=== PATIENT | male | born 1955 | race Caucasian/White ===

== ENCOUNTER 2022-11-01 09:54 | Outpatient (OUT) | payer MEDICARE, MEDICAID, SELFPAY ==
--- NOTE | 2022-11-01 10:00 | CA_ITS ---
Patient: MANASA NORIEGA Exam Date: 11/01/2022 : 1955 Gender:M Ordering : MRS. RICH SUMMERS NP Admission #: [id number] Family : Order #: [id number] CLICK HERE TO VIEW EXAM ECHOCARDIOGRAM REPORT PROCEDURE: CA ECHO DOPPLER COMPLETE INDICATIONS: Nonrheumatic mitral valve regurgitation, hypertension, h/o stroke COMPARISON: None. DESCRIPTION: COMPLETE ECHOCARDIOGRAM Real-time transthoracic echocardiography with 2D, M-mode, spectral and color flow Doppler performed. QUALITY: Technical quality was good. LEFT VENTRICLE: Normal chamber size. Mild concentric left ventricular hypertrophy. LV EF: Normal left ventricular ejection fraction, (>55%). DIASTOLIC: Diastolic function is indeterminate. ATRIAL SEPTUM: Inadequately seen. LEFT ATRIUM: Mild dilatation. RIGHT ATRIUM: Normal chamber size. RIGHT VENTRICLE: Normal chamber size. Normal right ventricular systolic function. TRICUSPID VALVE: Normal mobility and thickness. No stenosis with mild regurgitation. No evidence of pulmonary hypertension. RVSP 29 mmHg MITRAL VALVE: Mildly thickened with normal mobility. No evidence of mitral valve stenosis. Mild mitral annular calcification. No mitral regurgitation. AORTIC VALVE: Normal trileaflet appearance. Mildly calcified aortic valve. Normal leaflet mobility. No evidence of aortic valve stenosis. No aortic regurgitation. AORTIC ROOT: Normal diameter and appearance. PULMONIC VALVE: Not well visualized. No stenosis. No regurgitation. PERICARDIUM: No evidence of pericardial effusion. IVC: Not well visualized. CONCLUSION: Global left ventricular systolic function is normal; visually estimated ejection fraction is 55 to 60%. Mildly increased left ventricular wall thickness. The left atrium is dilated. The right ventricle is normal in size and systolic function. Mild tricuspid regurgitation. Adult Echocardiography Procedure Report Left Ventricle LVEDD (3.7 - 5.6 cm): 4.32 cm LVESD (2.2 - 4.0 cm): 3.02 cm LVIVS thickness (0.6 - 1.2 cm): 1.16 cm LVPW thickness (0.5 - 1.0 cm): 1.40 cm e': 0.09 m/s E - e': 7.10 LVOT Max Gradient: 2.93 mm[Hg] LVOT Area (cm2): 0.86 m/s Peak Velocity (LVOT): 0.86 m/s LVOT Diameter 2.44 cm Left Atrium LA Volume Index (2D A2C): 40.23 ml/m2 Left Atrium Systolic Dimension: 4.24 cm Mitral Valve MV E to A Ratio: 0.82 Mitral Valve A-Wave Peak Velocity: 0.76 m/s Mitral Valve E-Wave Peak Velocity: 0.62 m/s Right Ventricle Aorta AO Root Diam: 2.92 cm Aortic Valve AoV Area (Peak Yaw): 4.06 cm2, 4.06 cm2 Peak Velocity(Antegrade Flow): 0.98 m/s Peak Gradient(Antegrade Flow): 3.87 mm[Hg] Tricuspid Valve Peak Velocity (Regurgitant Flow): 2.53 m/s Pulmonic Valve Peak Velocity: 1.13 m/s Peak Gradient: 3.46 mm[Hg], 7.01 mm[Hg] Right Atrium Right Atrium Systolic Pressure: 20.64 ml, 20.64 ml Dictated by: Miranda Trejo M.D. on 11/02/2022 at 16:37 Approved by: Miranda Trejo M.D. on 11/02/2022 at 16:39
== END 2022-11-01 09:55 ==
LOC: CARD 09:59
PROVIDERS: PCP Nurse Practitioner
DX: I34.0 Nonrheumatic mitral (valve) insufficiency (principal)
CPT/HCPCS: 93306

== ENCOUNTER 2023-01-02 10:36 | Outpatient (OUT) | payer MEDICARE, MEDICAID, SELFPAY ==
--- NOTE | 2023-01-02 10:43 | US_ITS ---
The [address] [address] Patient Name: MANASA NORIEGA MRN: [id number] date: 1955 Sex: M Assigned Patient Location: US Current Patient Location: US Accession/Order Number: [id number] Exam Date: 01/02/2023 10:50 Report Date: 01/02/2023 11:51 At the request of: ABY CALLEJAS Procedure: US bladder EXAM: US bladder HISTORY: Nocturnal Enuresis N39.44, BPH With Urinary Obstruction COMPARISON: None. TECHNIQUE: Real-time bladder ultrasound. Findings: The bladder is unremarkable with visualization of the bilateral ureteral jets. Prevoid volume of 454 mL. The patient was unable to micturate and therefore no post void residual could be obtained. US/US bladder IMPRESSION: 1. Unremarkable bladder. Electronically authenticated by: TIARA BRUNNER Date: 01/02/2023 11:51
== END 2023-01-02 10:37 | disposition home or self-care (01) ==
LOC: US 10:38
PROVIDERS: PCP Nurse Practitioner; Visit Provider Urology
DX: N39.44 Nocturnal enuresis (principal); N40.1 Benign prostatic hyperplasia with lower urinary tract symptoms; R30.0 Dysuria
CPT/HCPCS: 76857

== ENCOUNTER 2023-01-31 18:02 | Emergency (ER) | payer MEDICARE, MEDICAID, SELFPAY ==
[2023-01-31 18:05] VITALS: BP 114/56; PULSE 75; RESP 16; TEMP 36.8; O2SAT 98
--- NOTE | 2023-01-31 18:44 | ED_ITS ---
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 He's had this catheter for about three weeks and it was due to be changed in three days. It's been draining into the bag but also been leaking around the catheter is well and is brief has been wet. No fever. All the history is obtained from the caregiver. This seems to have started within the last day. Related Data Home Medications Medication Instructions Recorded Confirmed acetaminophen 325 mg tablet 650 mg PO Q4H PRN fever or pain 01/31/23 01/31/23 amoxicillin 500 mg capsule 500 mg PO .every 8 hours 01/31/23 01/31/23 aripiprazole 5 mg tablet 2.5 mg PO DAILY 01/31/23 01/31/23 aspirin 325 mg tablet,delayed 325 mg PO DAILY 01/31/23 01/31/23 release celecoxib 100 mg capsule 100 mg PO BEDTIME 01/31/23 01/31/23 docusate sodium 100 mg capsule 100 mg PO BID 01/31/23 01/31/23 ferrous sulfate 325 mg (65 mg 325 mg PO DAILY 01/31/23 01/31/23 iron) tablet fluticasone propionate 50 2 spray intranasal DAILY 01/31/23 01/31/23 mcg/actuation nasal spray,suspension imipramine HCl 50 mg tablet 50 mg PO BEDTIME 01/31/23 01/31/23 ketoconazole 2 % shampoo 1 applic topical .twice weekly 01/31/23 01/31/23 lidocaine 5 % topical patch 1 patch topical Q24H PRN pain 01/31/23 01/31/23 linagliptin 5 mg tablet (Tradjenta) 5 mg PO DAILY 01/31/23 01/31/23 lisinopril 5 mg tablet 5 mg PO DAILY 01/31/23 01/31/23 lubiprostone 24 mcg capsule 24 mcg PO BID 01/31/23 01/31/23 metformin 500 mg tablet,extended 1,000 mg PO BID 01/31/23 01/31/23 release 24 hr multivitamin with folic acid 400 1 tab PO DAILY 01/31/23 01/31/23 mcg tablet (Daily-Milton (with folic acid)) pioglitazone 15 mg tablet 15 mg PO DAILY 01/31/23 01/31/23 polyethylene glycol 3350 17 gram 17 g PO DAILY 01/31/23 01/31/23 oral powder packet (ClearLax) sennosides 8.6 mg-docusate sodium 1 tab-cap PO BID 01/31/23 01/31/23 50 mg tablet (Stimulant Laxative Plus) simvastatin 5 mg tablet 5 mg PO BEDTIME 01/31/23 01/31/23 sodium chloride 0.65 % nasal spray 2 spray intranasal Q6H PRN dry 01/31/23 01/31/23 aerosol (Saline Mist) nasal passages tamsulosin 0.4 mg capsule 0.4 mg PO BID 01/31/23 01/31/23 Allergies Allergy/AdvReac Type Severity Reaction Status Date / Time No Known Drug Allergies Allergy Verified 01/31/23 18:14 Review of Systems ROS Narrative unobtainable, psychiatric disorder Exam Narrative Exam Narrative: Nurses note and vital signs reviewed and patient is not hypoxic. General: The patient appears in no apparent distress. Patient is resting comfortably on cart. Skin: Warm, dry, no pallor noted. There is no rash noted. Head: Normocephalic, atraumatic Eye: Normal conjunctiva, no drainage Ears, Nose, Mouth, and Throat: oral mucosa is moist. Nares patent. Cardiovascular: Regular Rate and Rhythm Respiratory: Patient is in no distress, no accessory muscle use, lungs are clear to auscultation, no wheezing, rales or rhonchi Back: non-tender GI: nontender nondistended Musculoskeletal: The patient has no evidence of calf tenderness, no pitting edema, symmetrical pulses noted bilaterally Neurological: awake and looking around the room. Nonverbal for me Psychiatric: not uncooperative Constitutional Vital Signs, click to edit/add: Last Vital Signs Temp 98.2 F 01/31/23 18:05 Pulse 75 01/31/23 18:05 Resp 16 01/31/23 18:05 BP 114/56 01/31/23 18:05 Pulse Ox 98 01/31/23 18:05 O2 Del Method Room Air 01/31/23 18:05 Course Vital Signs Vital signs: Vital Signs Temperature 98.2 F 01/31/23 18:05 Pulse Rate 75 01/31/23 18:05 Respiratory Rate 16 01/31/23 18:05 Blood Pressure 114/56 01/31/23 18:05 Pulse Oximetry 98 01/31/23 18:05 Oxygen Delivery Method Room Air 01/31/23 18:05 Temperature 98.2 F 01/31/23 18:05 Pulse Rate 75 01/31/23 18:05 Respiratory Rate 16 01/31/23 18:05 Blood Pressure 114/56 01/31/23 18:05 Pulse Oximetry 98 01/31/23 18:05 Oxygen Delivery Method Room Air 01/31/23 18:05 Medical Decision Making MDM Narrative Medical decision making narrative: Rossi catheter changed by nursing staff and it's functioning normally now and is able to be discharged home. Findings are discussed with his caregiver. Differential Diagnosis Differential Diagnosis: Rossi catheter problem, dislodged catheter Discharge Plan Discharge Chief Complaint: Recheck/Abnormal Lab/Rx Clinical Impression: Rossi catheter problem Patient Disposition: [facility] Time of Disposition Decision: 18:46 Mode of Transportation: Private Vehicle Prescriptions / Home Meds: No Action amoxicillin 500 mg capsule 500 mg PO .every 8 hours aripiprazole 5 mg tablet 2.5 mg PO DAILY aspirin 325 mg tablet,delayed release (DR/EC) 325 mg PO DAILY celecoxib 100 mg capsule 100 mg PO BEDTIME docusate sodium 100 mg capsule 100 mg PO BID ferrous sulfate 325 mg (65 mg iron) tablet 325 mg PO DAILY fluticasone propionate 50 mcg/actuation spray,suspension 2 spray INTRANASAL DAILY lisinopril 5 mg tablet 5 mg PO DAILY imipramine HCl 50 mg tablet 50 mg PO BEDTIME Tradjenta 5 mg tablet 5 mg PO DAILY lubiprostone 24 mcg capsule 24 mcg PO BID metformin 500 mg tablet extended release 24 hr 1,000 mg PO BID multivitamin with folic acid [Daily-Milton (with folic acid)] 400 mcg tablet 1 tab PO DAILY pioglitazone 15 mg tablet 15 mg PO DAILY sennosides-docusate sodium [Stimulant Laxative Plus] 8.6-50 mg tablet 1 tab-cap PO BID simvastatin 5 mg tablet 5 mg PO BEDTIME tamsulosin 0.4 mg capsule 0.4 mg PO BID polyethylene glycol 3350 [ClearLax] 17 gram powder in packet 17 g PO DAILY ketoconazole 2 % shampoo 1 applic topical .twice weekly acetaminophen 325 mg tablet 650 mg PO Q4H PRN (Reason: fever or pain) lidocaine 5 % adhesive patch,medicated 1 patch topical Q24H PRN (Reason: pain) Saline Mist 0.65 % aerosol,spray 2 spray INTRANASAL Q6H PRN (Reason: dry nasal passages) Stand Alone Forms: Portal Instructions Referrals: RYLAN NUNEZ [Primary Care Provider] - 1 week
== END 2023-01-31 18:52 ==
PROVIDERS: Emergency Provider Emergency Medicine; PCP Nurse Practitioner
DX: T83.098A Other mechanical complication of other urinary catheter, initial encounter (principal); Z79.82 Long term (current) use of aspirin; Z79.899 Other long term (current) drug therapy; Z79.84 Long term (current) use of oral hypoglycemic drugs
CPT/HCPCS: 99284

== ENCOUNTER 2023-04-06 08:15 | Inpatient (IN) | payer MEDICARE, MEDICAID, SELFPAY ==
[2023-04-06] VITALS (37 sets, daily range): BP systolic 130–165; BP diastolic 60–85; PULSE 67–100; RESP 16–35; TEMP 36.4–37.2; O2SAT 89–98; BMI 29.2; BMI 22.9
--- NOTE | 2023-04-06 08:19 | XR_ITS ---
The [address] [address] Patient Name: MANASA NORIEGA MRN: [id number] date: 1955 Sex: M Assigned Patient Location: ER Current Patient Location: ER Accession/Order Number: [id number] Exam Date: 04/06/2023 08:50 Report Date: 04/06/2023 10:31 At the request of: ALICE NOLASCO Procedure: XR chest 1V EXAM: XR chest 1V, XR wrist RT min 3V, XR elbow RT min 3V, XR shoulder RT min 2V, XR forearm RT 2V HISTORY: weak COMPARISON: None. TECHNIQUE: One view of the chest, 2 views of the right forearm, 3 views of the right shoulder, elbow and wrist are reviewed FINDINGS: CHEST: Elevated left hemidiaphragm due to gaseous distention of the splenic flexure. Low lung volumes. No pneumothorax. Right basilar atelectasis and/or consolidation. Right shoulder: There is a displaced, comminuted fracture of the right humeral neck with 0.7 cm lateral dislocation of the distal fracture fragment relative to the proximal fracture fragment. There is no dislocation. Diffuse osteopenia. Right elbow and forearm: There is no acute fracture or dislocation. No joint effusion. The soft tissues are unremarkable. Right wrist: No acute fracture or dislocation. There appears chronic fracture deformity of the distal radius at the diametaphyseal junction. There is arthritic changes of the radiocarpal and midcarpal bones. There appears cortical thickening and patchy groundglass opacities of the humerus, radius and ulna. 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 There is vascular calcification. The soft tissues are unremarkable. XR/XR chest 1V IMPRESSION: Displaced, comminuted fracture of the right humeral neck as described above. There appears cortical thickening and patchy groundglass opacities of the humerus, radius and ulna. 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 Electronically authenticated by: FRANCESCO BROCK Date: 04/06/2023 10:31
--- NOTE | 2023-04-06 08:19 | CT_ITS ---
The [address] [address] Patient Name: MANASA NORIEGA MRN: [id number] date: 1955 Sex: M Assigned Patient Location: ER Current Patient Location: ER Accession/Order Number: [id number] Exam Date: 04/06/2023 08:40 Report Date: 04/06/2023 09:02 At the request of: ALICE NOLASCO Procedure: CT head/brain wo con CT head/brain wo con, 04/06/2023 8:40 AM EST INDICATION: Fall COMPARISON: Noncontrast CT of the head 12/09/2018 TECHNIQUE: Axial CT images of the brain from skull base to vertex, including portions of the face and sinuses, were obtained without contrast. Multiplanar reformatted images were generated and reviewed as needed. FINDINGS: No intracranial mass, hydrocephalus, midline shift or acute hemorrhage. No extra-axial collection. Remote left MCA infarct with pronounced encephalomalacia in the left basal ganglia and ex vacuo dilatation of the left lateral ventricle. Periventricular and deep white matter microvascular ischemic change. Steven-white matter differentiation is preserved. The paranasal sinuses and mastoid air cells are clear. Orbits are within normal limits. No acute skull fracture. CT/CT head/brain wo con IMPRESSION: No acute intracranial abnormality. Electronically authenticated by: DANIEL MONTOYA Date: 04/06/2023 09:02
--- NOTE | 2023-04-06 08:19 | ECG_ITS ---
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
--- NOTE | 2023-04-06 08:20 | CT_ITS ---
The [address] [address] Patient Name: MANASA NORIEGA MRN: [id number] date: 1955 Sex: M Assigned Patient Location: ER Current Patient Location: ER Accession/Order Number: [id number] Exam Date: 04/06/2023 08:40 Report Date: 04/06/2023 09:07 At the request of: ALICE NOLASCO Procedure: CT cervical spine wo con CT cervical spine wo con, 04/06/2023 8:40 AM EST INDICATION: Fall COMPARISON: CT of the cervical spine 12/09/2018, 08/13/2015. TECHNIQUE: Thin-section axial CT images of the entire cervical spine were acquired without contrast. Supplemental 2D reformatted images were generated and reviewed as needed. Dose reduction techniques were achieved by using automated exposure control and/or adjustment of mA and/or kV according to patient size and/or use of iterative reconstruction technique. FINDINGS: Craniocervical junction within normal limits. Atlantodental distance is not widened. No prevertebral soft tissue edema. There is normal cervical lordosis. No subluxation. No fracture. Multilevel degenerative disc disease with facet hypertrophy. Central spinal canal is grossly preserved. No epidural hematoma. No consolidation at the lung apices. CT/CT cervical spine wo con IMPRESSION: No acute fracture or traumatic malalignment. Electronically authenticated by: DANIEL MONTOYA Date: 04/06/2023 09:07
--- NOTE | 2023-04-06 08:29 | XR_ITS ---
The [address] [address] Patient Name: MANASA NORIEGA MRN: [id number] date: 1955 Sex: M Assigned Patient Location: ER Current Patient Location: Accession/Order Number: [id number] Exam Date: 04/06/2023 08:50 Report Date: 04/06/2023 10:31 At the request of: ALICE NOLASCO Procedure: XR shoulder RT min 2V EXAM: XR chest 1V, XR wrist RT min 3V, XR elbow RT min 3V, XR shoulder RT min 2V, XR forearm RT 2V HISTORY: weak COMPARISON: None. TECHNIQUE: One view of the chest, 2 views of the right forearm, 3 views of the right shoulder, elbow and wrist are reviewed FINDINGS: CHEST: Elevated left hemidiaphragm due to gaseous distention of the splenic flexure. Low lung volumes. No pneumothorax. Right basilar atelectasis and/or consolidation. Right shoulder: There is a displaced, comminuted fracture of the right humeral neck with 0.7 cm lateral dislocation of the distal fracture fragment relative to the proximal fracture fragment. There is no dislocation. Diffuse osteopenia. Right elbow and forearm: There is no acute fracture or dislocation. No joint effusion. The soft tissues are unremarkable. Right wrist: No acute fracture or dislocation. There appears chronic fracture deformity of the distal radius at the diametaphyseal junction. There is arthritic changes of the radiocarpal and midcarpal bones. There appears cortical thickening and patchy groundglass opacities of the humerus, radius and ulna. 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 There is vascular calcification. The soft tissues are unremarkable. XR/XR shoulder RT min 2V IMPRESSION: Displaced, comminuted fracture of the right humeral neck as described above. There appears cortical thickening and patchy groundglass opacities of the humerus, radius and ulna. 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 Electronically authenticated by: FRANCESCO BROCK Date: 04/06/2023 10:31
--- NOTE | 2023-04-06 08:29 | XR_ITS ---
The [address] [address] Patient Name: MANASA NORIEGA MRN: [id number] date: 1955 Sex: M Assigned Patient Location: ER Current Patient Location: ER Accession/Order Number: [id number] Exam Date: 04/06/2023 08:50 Report Date: 04/06/2023 10:31 At the request of: ALICE NOLASCO Procedure: XR wrist RT min 3V EXAM: XR chest 1V, XR wrist RT min 3V, XR elbow RT min 3V, XR shoulder RT min 2V, XR forearm RT 2V HISTORY: weak COMPARISON: None. TECHNIQUE: One view of the chest, 2 views of the right forearm, 3 views of the right shoulder, elbow and wrist are reviewed FINDINGS: CHEST: Elevated left hemidiaphragm due to gaseous distention of the splenic flexure. Low lung volumes. No pneumothorax. Right basilar atelectasis and/or consolidation. Right shoulder: There is a displaced, comminuted fracture of the right humeral neck with 0.7 cm lateral dislocation of the distal fracture fragment relative to the proximal fracture fragment. There is no dislocation. Diffuse osteopenia. Right elbow and forearm: There is no acute fracture or dislocation. No joint effusion. The soft tissues are unremarkable. Right wrist: No acute fracture or dislocation. There appears chronic fracture deformity of the distal radius at the diametaphyseal junction. There is arthritic changes of the radiocarpal and midcarpal bones. There appears cortical thickening and patchy groundglass opacities of the humerus, radius and ulna. 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 There is vascular calcification. The soft tissues are unremarkable. XR/XR wrist RT min 3V IMPRESSION: Displaced, comminuted fracture of the right humeral neck as described above. There appears cortical thickening and patchy groundglass opacities of the humerus, radius and ulna. 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 Electronically authenticated by: FRANCESCO BROCK Date: 04/06/2023 10:31
--- NOTE | 2023-04-06 08:29 | XR_ITS ---
The [address] [address] Patient Name: MNAASA NORIEGA MRN: [id number] date: 1955 Sex: M Assigned Patient Location: ER Current Patient Location: Accession/Order Number: [id number] Exam Date: 04/06/2023 08:50 Report Date: 04/06/2023 10:31 At the request of: ALICE NOLASCO Procedure: XR elbow RT min 3V EXAM: XR chest 1V, XR wrist RT min 3V, XR elbow RT min 3V, XR shoulder RT min 2V, XR forearm RT 2V HISTORY: weak COMPARISON: None. TECHNIQUE: One view of the chest, 2 views of the right forearm, 3 views of the right shoulder, elbow and wrist are reviewed FINDINGS: CHEST: Elevated left hemidiaphragm due to gaseous distention of the splenic flexure. Low lung volumes. No pneumothorax. Right basilar atelectasis and/or consolidation. Right shoulder: There is a displaced, comminuted fracture of the right humeral neck with 0.7 cm lateral dislocation of the distal fracture fragment relative to the proximal fracture fragment. There is no dislocation. Diffuse osteopenia. Right elbow and forearm: There is no acute fracture or dislocation. No joint effusion. The soft tissues are unremarkable. Right wrist: No acute fracture or dislocation. There appears chronic fracture deformity of the distal radius at the diametaphyseal junction. There is arthritic changes of the radiocarpal and midcarpal bones. There appears cortical thickening and patchy groundglass opacities of the humerus, radius and ulna. 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 There is vascular calcification. The soft tissues are unremarkable. XR/XR elbow RT min 3V IMPRESSION: Displaced, comminuted fracture of the right humeral neck as described above. There appears cortical thickening and patchy groundglass opacities of the humerus, radius and ulna. 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 Electronically authenticated by: FRANCESCO BROCK Date: 04/06/2023 10:31
--- NOTE | 2023-04-06 08:29 | XR_ITS ---
The [address] [address] Patient Name: MANASA NORIEGA MRN: [id number] date: 1955 Sex: M Assigned Patient Location: ER Current Patient Location: Accession/Order Number: [id number] Exam Date: 04/06/2023 08:50 Report Date: 04/06/2023 10:31 At the request of: ALICE NOLASCO Procedure: XR forearm RT 2V EXAM: XR chest 1V, XR wrist RT min 3V, XR elbow RT min 3V, XR shoulder RT min 2V, XR forearm RT 2V HISTORY: weak COMPARISON: None. TECHNIQUE: One view of the chest, 2 views of the right forearm, 3 views of the right shoulder, elbow and wrist are reviewed FINDINGS: CHEST: Elevated left hemidiaphragm due to gaseous distention of the splenic flexure. Low lung volumes. No pneumothorax. Right basilar atelectasis and/or consolidation. Right shoulder: There is a displaced, comminuted fracture of the right humeral neck with 0.7 cm lateral dislocation of the distal fracture fragment relative to the proximal fracture fragment. There is no dislocation. Diffuse osteopenia. Right elbow and forearm: There is no acute fracture or dislocation. No joint effusion. The soft tissues are unremarkable. Right wrist: No acute fracture or dislocation. There appears chronic fracture deformity of the distal radius at the diametaphyseal junction. There is arthritic changes of the radiocarpal and midcarpal bones. There appears cortical thickening and patchy groundglass opacities of the humerus, radius and ulna. 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 There is vascular calcification. The soft tissues are unremarkable. XR/XR forearm RT 2V IMPRESSION: Displaced, comminuted fracture of the right humeral neck as described above. There appears cortical thickening and patchy groundglass opacities of the humerus, radius and ulna. 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 Electronically authenticated by: FRANCESCO BROCK Date: 04/06/2023 10:31
--- NOTE | 2023-04-06 08:48 | PC.NURSE ---
pt fell getting out of bed. pt is nonverbal and lives at a correction. staff reports hearing a thud and coming straight to pt's room to find him on the floor. pt grimacing in pain with R arm and stomach. Abrasion to R ear. pt did not lose consciousness.
[2023-04-06 08:52] LABS: Hematocrit 36.4 % (42.0-54.0); Hemoglobin 11.4 g/dL (14.0-18.0); Mean Corpuscular HGB Conc 31.3 g/dL (29.9-35.2); Mean Corpuscular Hemoglobin 28.7 pg (25.9-34.0); Mean Corpuscular Volume 91.7 fL (80.0-94.0); Red Blood Count 3.97 10^6/uL (4.70-6.10); Red Cell Distribution Width 17.3 % (11.0-15.0); White Blood Count 9.3 10^3/uL (4.0-11.0)
[2023-04-06 09:02] LABS: Creatine Kinase 137 U/L (39-308); Platelet Count 131 10^3/uL (150-450)
[2023-04-06 09:07] LABS: Anion Gap 16.5; BUN Creatinine Ratio 39.8; Calcium 8.8 mg/dL (8.5-10.1); Carbon Dioxide 25.8 mmol/L (21.0-32.0); Chloride 97 mmol/L (98-107); Estimated GFR (African America >60 (>=60); Estimated GFR (Non-African Ame >60 (>=60); Glucose 193 mg/dL (74-106); Potassium 4.3 mmol/L (3.5-5.1); Sodium 135 mmol/L (136-145); Troponin I High Sensitivity 31.9 pg/mL (4.0-76.1)
[2023-04-06 09:36] LABS: Band Neutrophils Absolute 0.7 10^3/uL (0.0-0.3); Lymphocytes Absolute Manual 0.18 10^3/uL (1.20-3.80); Monocytes Absolute Manual 0.55 10^3/uL (0.30-0.80)
--- NOTE | 2023-04-06 10:01 | CT_ITS ---
The [address] [address] Patient Name: MANASA NORIEGA MRN: [id number] date: 1955 Sex: M Assigned Patient Location: ER Current Patient Location: ER Accession/Order Number: [id number] Exam Date: 04/06/2023 10:50 Report Date: 04/06/2023 12:30 At the request of: ALICE NOLASCO Procedure: CT abdomen pelvis w con CLINICAL HISTORY: Low abd pain. EXAMINATION: Enhanced CT scan of the abdomen and pelvis: 04/06/2023. COMPARISON: Enhanced CT scan of the abdomen and pelvis 12/12/2018. TECHNIQUE: 3 mm axial images from lung bases through ischial tuberosities following administration of intravenous contrast were obtained. No oral contrast was utilized. Sagittal, coronal reconstructions were performed. FINDINGS: There is minimal right, small left pleural effusion with some atelectasis at the lung bases as well as in the lingula. The heart size seems normal. There are moderate calcifications of the aortic annulus. There are mild coronary artery calcifications. CT ABDOMEN: The liver, spleen, adrenal glands, gallbladder, kidneys appear normal. There is probably a sigmoid volvulus since there is twisted appearance to the mesenteric vessels, with change in caliber, images 92-99 sequence 4. The small bowel loops are not abnormally dilated. CT PELVIS: There is body wall edema as well as there is free fluid within the pelvis as well as haziness of the mesenteric fat. Despite Rossi catheter, the bladder is still distended with thickening of the wall. There is some free fluid within the pelvis. The prostate is normal in size. There is no pelvic adenopathy. There is a hip pin with intramedullary jesika involving the right hip joint. There are compression deformities of L1, L2, L3, L5 as well as T11 and some other lower thoracic segments and vertebral bodies. The bones are osteopenic. These seem to have progressed particularly there are new compression deformities particularly at L2, L3, L5 and there is mild compression deformity of the superior endplate of L4 as well. CT/CT abdomen pelvis w con IMPRESSION: 1. Findings suspicious for sigmoid volvulus with distended colon proximal to it. There is no small bowel abnormal dilatation, however there are some edematous loops of small bowel at the position of transition where there is some twisted appearance to the vessels, therefore a developing ischemic event would be a consideration. 2. Diffuse body wall edema, haziness of the mesenteric fat, small amount of free fluid in the pelvis which is reactive as well as minimal right, small left pleural effusion. 3. Bilateral renal cysts without nephro or ureterolithiasis. 4. Despite Rossi catheter, the bladder is distended with thickened appearance to the wall of the bladder. Underlying cystitis would be difficult to exclude. Electronically authenticated by: NAT RUELAS Date: 04/06/2023 12:30
[2023-04-06 10:18] LABS: Bilirubin Urine NEGATIVE (NEGATIVE); Blood Urine SMALL (NEGATIVE); Clarity Urine CLEAR (CLEAR); Color Urine LT. YELLOW (YELLOW); Glucose Urine UA NEGATIVE (NEGATIVE); Ketones Urine NEGATIVE (NEGATIVE); Leukocyte Esterase Urine SMALL (NEGATIVE); Nitrite Urine NEGATIVE (NEGATIVE); Protein Urine 100 mg/dL (NEG/TRACE); Specific Gravity Urine <=1.005 (1.005-1.025); pH Urine >=9.0 (5.0-9.0)
[2023-04-06 10:20] LABS: RBC Urine 0-2 #/HPF (0-2); WBC Urine 0-2 #/HPF (NONE SEEN)
[2023-04-06 10:21] LABS: Bacteria Urine TRACE #/HPF (NONE SEEN); Crystals Seen? Seen #/HPF (None Seen); Mucus Urine NONE SEEN (NONE SEEN); Squamous Epithelial Cell Urine NONE SEEN #/LPF (NONE/RARE)
[2023-04-06 10:22] LABS: Triple Phosphate Crystal Urine MODERATE
[2023-04-06 10:25] LABS: Cast Seen? NONE SEEN #/LPF (NONE SEEN)
[2023-04-06] MEDS: MORPHINE SULFATE 4 MG/ML VIAL IV (11:32)
--- NOTE | 2023-04-06 11:58 | PC.NURSE ---
This RN noticed pt had not made much urine in edmonds catheter bag -- changed edmonds catheter and approx 500ml of urine pt incontinent of. 250ml immediately into edmonds drainage bag. Pt appears more comfortable at this time. linen and gown changed aas well as skin care completed with another RN. warm blankets given. informed dr ortiz.
--- NOTE | 2023-04-06 13:03 | PC.NURSE ---
sling applied to R arm. lab in to draw pt.
[2023-04-06 13:08] LABS: Lactate/Lactic Acid 2.7 mmol/L (0.4-2.0)
--- NOTE | 2023-04-06 15:12 | CT_ITS ---
The [address] [address] Patient Name: MANASA NORIEGA MRN: [id number] date: 1955 Sex: M Assigned Patient Location: ER Current Patient Location: Accession/Order Number: [id number] Exam Date: 04/06/2023 15:02 Report Date: 04/06/2023 15:55 At the request of: ALICE NOLASCO Procedure: CT angio abdomen pelvis EXAM: CT angio abdomen pelvis HISTORY: poss volvulus COMPARISON: CT of the abdomen and pelvis from the same day TECHNIQUE: Axial CT imaging was performed with and without contrast through the abdomen, and pelvis, utilizing CTA protocol. Multiplanar reformats were performed. Dose reduction techniques were achieved by using automated exposure control and/or adjustment of mA and/or kV according to patient size and/or use of iterative reconstruction technique. FINDINGS: Lung bases: Lung bases are clear. No pleural effusion. GI upper: Unremarkable. Liver: Normal size and contour. Gallbladder: No significant abnormality. No cholelithiasis. Biliary system: No intra or extrahepatic biliary ductal dilatation. Spleen: Normal size. Pancreas: Unremarkable. Adrenal glands: Normal adrenal glands. Kidneys/ureters: Normal contours. No hydronephrosis. No nephrolithiasis or ureterolithiasis. Lymph Nodes: No lymphadenopathy. Small bowel: Oral contrast is in the stomach and proximal bowel loops. No wall thickening or dilatation. Colon: Oral contrast is seen throughout the large bowel up to the rectum. Dilated sigmoid colon is seen in the right upper abdomen with swirling of the vessels in the right lower abdomen (series 6, image 69) and collapse of the rectum and afferent and efferent transitional points in the right lower abdomen (series 6, image 52 and 68), representing sigmoid volvulus. There is circumferential wall thickening of the rectum. Appendix: No findings of appendicitis. Peritoneal cavity: No free fluid or pneumoperitoneum. Lower : Prostatomegaly. Rossi catheter balloon is seen in the urinary bladder. Bones: Compression fracture of T11 and L1. Multilevel Schmorl's nodes are noted. Soft tissues: No acute finding. Additional findings: None. VASCULAR FINDINGS: CTA ABDOMEN PELVIS: Aorta: No evidence of aneurysm, dissection, or occlusion. No significant stenosis. Right renal artery: No evidence of aneurysm, dissection, or occlusion. No significant stenosis. Left renal artery: No evidence of aneurysm, dissection, or occlusion. No significant stenosis. Celiac artery: No evidence of aneurysm, dissection, or occlusion. No significant stenosis. Superior mesenteric artery: No evidence of aneurysm, dissection, or occlusion. No significant stenosis. Inferior mesenteric artery: No evidence of aneurysm, dissection, or occlusion. No significant stenosis. PELVIC ARTERIES: Right: Common iliac artery: No evidence of aneurysm, dissection, or occlusion. No significant stenosis. External iliac artery: No evidence of aneurysm, dissection, or occlusion. No significant stenosis. Internal iliac artery: No evidence of aneurysm, dissection, or occlusion. No significant stenosis. Left: Common iliac artery: No evidence of aneurysm, dissection, or occlusion. No significant stenosis. Common external artery: No evidence of aneurysm, dissection, or occlusion. No significant stenosis. Internal iliac artery: No evidence of aneurysm, dissection, or occlusion. No significant stenosis. CT/CT angio abdomen pelvis IMPRESSION: 1. No evidence of dissection, aneurysm, or occlusion. No evidence of venous thrombus or mesenteric vascular emboli. 2. CT evidence of sigmoid volvulus. No pneumatosis. Critical results were NOTIFIED by TELEPHONE BY Dr. Angy Brock MD to MD GAURAV At 04/06/2023 3:39 PM EST. Electronically authenticated by: ANGY BROCK Date: 04/06/2023 15:55
--- NOTE | 2023-04-06 17:03 | ED.FALL1 ---
HPI - Fall General Chief Complaint: Fall Stated Complaint: FALL Time Seen by Provider: 04/06/23 08:18 Source: other Source comment: ems Mode of arrival: ambulance Limitations: altered mental status and physical limitation History of Present Illness HPI Narrative: 67-year-old male who is chronically nonverbal presents to Emergency Department after a fall. He is unable to provide any history. Caregiver is here to provide history and she reports that he was found on the floor and may have been there for a few hours. She had the sense that he was having some pain in his right arm. This occurred just before coming into the emergency department. No further history is obtainable. Later during the emergency department visit the caregiver reported that the patient seems have been having some abdominal pain for the last day. Related Data Home Medications Medication Instructions Recorded Confirmed acetaminophen 325 mg tablet 650 mg PO Q4H PRN fever or pain 01/31/23 04/06/23 aripiprazole 5 mg tablet 2.5 mg PO DAILY 01/31/23 04/06/23 aspirin 325 mg tablet,delayed 325 mg PO DAILY 01/31/23 04/06/23 release celecoxib 100 mg capsule 100 mg PO BEDTIME 01/31/23 04/06/23 docusate sodium 100 mg capsule 100 mg PO BID 01/31/23 04/06/23 fluticasone propionate 50 2 spray intranasal DAILY 01/31/23 04/06/23 mcg/actuation nasal spray,suspension imipramine HCl 50 mg tablet 50 mg PO BEDTIME 01/31/23 04/06/23 ketoconazole 2 % shampoo 1 applic topical .twice weekly 01/31/23 04/06/23 linagliptin 5 mg tablet (Tradjenta) 5 mg PO DAILY 01/31/23 04/06/23 lisinopril 5 mg tablet 5 mg PO DAILY 01/31/23 04/06/23 lubiprostone 24 mcg capsule 24 mcg PO BID 01/31/23 04/06/23 metformin 500 mg tablet,extended 1,000 mg PO BID 01/31/23 04/06/23 release 24 hr multivitamin with folic acid 400 1 tab PO DAILY 01/31/23 04/06/23 mcg tablet (Daily-Milton (with folic acid)) pioglitazone 15 mg tablet 15 mg PO DAILY 01/31/23 04/06/23 sennosides 8.6 mg-docusate sodium 1 tab-cap PO BID 01/31/23 04/06/23 50 mg tablet (Stimulant Laxative Plus) simvastatin 5 mg tablet 5 mg PO BEDTIME 01/31/23 04/06/23 sodium chloride 0.65 % nasal spray 2 spray intranasal Q6H PRN dry 01/31/23 04/06/23 aerosol (Saline Mist) nasal passages tamsulosin 0.4 mg capsule 0.4 mg PO BID 01/31/23 04/06/23 pyrilamine 7.5 mg-dextromethorphan ml PO 04/06/23 7.5 mg/5 mL oral liquid (Medon DM) Allergies Allergy/AdvReac Type Severity Reaction Status Date / Time No Known Drug Allergies Allergy Verified 01/31/23 18:14 Review of Systems ROS Narrative not obtainable, nonverbal PFSH PFSH Social History Smoking status: Unknown if ever smoked Exam Narrative Exam Narrative: Nurses note and vital signs reviewed and patient is not hypoxic. General: The patient appears in no apparent distress. Patient is resting comfortably on cart. Skin: Warm, dry, no pallor noted. There is no rash noted. Head: Normocephalic, atraumatic Eye: Normal conjunctiva, no drainage Ears, Nose, Mouth, and Throat: oral mucosa is moist. Nares patent. Cardiovascular: Regular Rate and Rhythm Respiratory: Patient is in no distress, no accessory muscle use, lungs are clear to auscultation, no wheezing, rales or rhonchi Back: non-tender GI: there is no distention. Initially he had some tenderness but his Rossi catheter was not draining at that point. Repeat examination after Rossi catheter was replaced shows no tenderness or distention. Musculoskeletal: he has no palpable tenderness to either leg or the left arm. Range of motion of the right arm seems to cause discomfort but he cannot localize it. There is no obvious deformity. Radial pulse 2+. Neurological: nonverbal Psychiatric: cannot be assessed Constitutional Vital Signs, click to edit/add: Last Vital Signs Temp 97.5 F L 04/06/23 08:17 Pulse 72 04/06/23 16:24 Resp 19 04/06/23 16:24 BP 154/79 H 04/06/23 16:24 Pulse Ox 93 L 04/06/23 16:20 O2 Del Method Room Air 04/06/23 08:17 Course Vital Signs Vital signs: Vital Signs Temperature 97.5 F L 04/06/23 08:17 Pulse Rate 78 04/06/23 08:17 Respiratory Rate 16 04/06/23 08:17 Blood Pressure 165/85 H 04/06/23 08:17 Pulse Oximetry 98 04/06/23 08:17 Oxygen Delivery Method Room Air 04/06/23 08:17 Temperature 97.5 F L 04/06/23 08:17 Pulse Rate 72 04/06/23 16:24 Respiratory Rate 19 04/06/23 16:24 Blood Pressure 154/79 H 04/06/23 16:24 Pulse Oximetry 93 L 04/06/23 16:20 Oxygen Delivery Method Room Air 04/06/23 08:17 MDM - Fall MDM Narrative Medical decision making narrative: x-rays were ordered as well as CAT scan of the head and neck and also right humerus fracture was identified, minimally displaced. With the caregiver arrived and she reported the abdominal pain and a CAT scan abdomen was ordered. At this point the radiologist felt that there is sigmoid volvulus and the nondraining catheter was identified. The catheter was changed out with good drainage of urine and I spoke to the general surgeon on-call, Dr. Marinelli. He requested CT angiogram which was performed and this does shows volvulus but no vascular occlusion. Initial lactic acid was 2.7 and the repeat is 1.0. was updated and the patient will be admitted here and I have ordered a barium enema for the morning at his request. Orthopedics, Dr. Maravilla, was also consult it and made aware of the proximal humerus fracture. Sling applied and application checked by me and found to be appropriate, he is neurovascularly intact. Findings are discussed with his caregiver and the patient is being admitted to Dr. Espinoza. Differential Diagnosis Differential diagnosis: Likely other (shoulder fracture, shoulder dislocation, elbow fracture, wrist fracture, Rossi catheter malfunction) Lab Data Attestation: I reviewed the patient's lab results. Labs: Lab Results 04/06/23 04/06/23 04/06/23 Range/Units 08:38 09:30 15:39 WBC 9.3 (4.0-11.0) 10^3/uL RBC 3.97 L (4.70-6.10) 10^6/uL Hgb 11.4 L (14.0-18.0) g/dL Hct 36.4 L (42.0-54.0) % MCV 91.7 (80.0-94.0) fL MCH 28.7 (25.9-34.0) pg MCHC 31.3 (29.9-35.2) g/dL RDW 17.3 H (11.0-15.0) % Plt Count 131 L (150-450) 10^3/uL Seg Neuts % (Manual) 85.0 Band Neutrophils % 7.0 H (0-5) % Lymphocytes % (Manual) 2.0 L (20.5-60.0) % Monocytes % (Manual) 6.0 (1.7-12.0) % Eosinophils % (Manual) 0.0 L (0.9-7.0) % Basophils % (Manual) 0.0 L (0.2-2.0) % Neutrophils # (Manual) 7.90 H (1.4-6.5) 10^3/uL Band Neutrophils # 0.7 H (0.0-0.3) 10^3/uL Lymphocytes # (Manual) 0.18 L (1.20-3.80) 10^3/uL Monocytes # (Manual) 0.55 (0.30-0.80) 10^3/uL Eosinophils # (Manual) 0.00 (0.00-0.70) 10^3/uL Basophils # (Manual) 0.00 (0.00-0.10) 10^3/uL Sodium 135 L (136-145) mmol/L Potassium 4.3 (3.5-5.1) mmol/L Chloride 97 L (98-107) mmol/L Carbon Dioxide 25.8 (21.0-32.0) mmol/L Anion Gap 16.5 BUN 35.0 H (7.0-18.0) mg/dL Creatinine 0.88 (0.70-1.30) mg/dL Est GFR ( Amer) >60 (>=60) Est GFR (Non-Af Amer) >60 (>=60) BUN/Creatinine Ratio 39.8 Glucose 193 H (74-106) mg/dL Lactate 2.7 H* 1.0 (0.4-2.0) mmol/L Calcium 8.8 (8.5-10.1) mg/dL Total Creatine Kinase 137 (39-308) U/L Troponin I High Sens 31.9 (4.0-76.1) pg/mL Urine Color Lt. yellow (YELLOW) Urine Clarity Clear (CLEAR) Urine pH >=9.0 A (5.0-9.0) Ur Specific [place] <=1.005 A (1.005-1.025) Urine Protein 100 A (NEG/TRACE) mg/dL Urine Glucose (UA) Negative (NEGATIVE) mg/dL Urine Ketones Negative (NEGATIVE) mg/dL Urine Occult Blood Small A (NEGATIVE) Urine Nitrite Negative (NEGATIVE) Urine Bilirubin Negative (NEGATIVE) Urine Urobilinogen 1.0 (0.2-1.0) EU/dL Ur Leukocyte Esterase Small A (NEGATIVE) Urine RBC 0-2 (0-2) #/HPF Urine WBC 0-2 A (NONE SEEN) #/HPF Ur Squamous Epith Cells None seen (NONE/RARE) #/LPF Urine Crystals Seen A (None Seen) #/HPF Triple Phos Crystals Moderate Urine Bacteria Trace A (NONE SEEN) #/HPF Urine Casts None seen (NONE SEEN) #/LPF Urine Mucus None seen (NONE SEEN) Imaging Data numerous: Radiologist's impression: Procedure: XR elbow RT min 3V EXAM: XR chest 1V, XR wrist RT min 3V, XR elbow RT min 3V, XR shoulder RT min 2V, XR forearm RT 2V HISTORY: weak COMPARISON: None. TECHNIQUE: One view of the chest, 2 views of the right forearm, 3 views of the right shoulder, elbow and wrist are reviewed FINDINGS: CHEST: Elevated left hemidiaphragm due to gaseous distention of the splenic flexure. Low lung volumes. No pneumothorax. Right basilar atelectasis and/or consolidation. Right shoulder: There is a displaced, comminuted fracture of the right humeral neck with 0.7 cm lateral dislocation of the distal fracture fragment relative to the proximal fracture fragment. There is no dislocation. Diffuse osteopenia. Right elbow and forearm: There is no acute fracture or dislocation. No joint effusion. The soft tissues are unremarkable. Right wrist: No acute fracture or dislocation. There appears chronic fracture deformity of the distal radius at the diametaphyseal junction. There is arthritic changes of the radiocarpal and midcarpal bones. There appears cortical thickening and patchy groundglass opacities of the humerus, radius and ulna. 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 There is vascular calcification. The soft tissues are unremarkable. IMPRESSION: Displaced, comminuted fracture of the right humeral neck as described above. There appears cortical thickening and patchy groundglass opacities of the humerus, radius and ulna. 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 Electronically authenticated by: ANGY BROCK Date: 04/06/2023 10:31 Procedure: CT abdomen pelvis w con CLINICAL HISTORY: Low abd pain. EXAMINATION: Enhanced CT scan of the abdomen and pelvis: 04/06/2023. COMPARISON: Enhanced CT scan of the abdomen and pelvis 12/12/2018. TECHNIQUE: 3 mm axial images from lung bases through ischial tuberosities following administration of intravenous contrast were obtained. No oral contrast was utilized. Sagittal, coronal reconstructions were performed. FINDINGS: There is minimal right, small left pleural effusion with some atelectasis at the lung bases as well as in the lingula. The heart size seems normal. There are moderate calcifications of the aortic annulus. There are mild coronary artery calcifications. CT ABDOMEN: The liver, spleen, adrenal glands, gallbladder, kidneys appear normal. There is probably a sigmoid volvulus since there is twisted appearance to the mesenteric vessels, with change in caliber, images 92-99 sequence 4. The small bowel loops are not abnormally dilated. CT PELVIS: There is body wall edema as well as there is free fluid within the pelvis as well as haziness of the mesenteric fat. Despite Rossi catheter, the bladder is still distended with thickening of the wall. There is some free fluid within the pelvis. The prostate is normal in size. There is no pelvic adenopathy. There is a hip pin with intramedullary jesika involving the right hip joint. There are compression deformities of L1, L2, L3, L5 as well as T11 and some other lower thoracic segments and vertebral bodies. The bones are osteopenic. These seem to have progressed particularly there are new compression deformities particularly at L2, L3, L5 and there is mild compression deformity of the superior endplate of L4 as well. IMPRESSION: 1. Findings suspicious for sigmoid volvulus with distended colon proximal to it. There is no small bowel abnormal dilatation, however there are some edematous loops of small bowel at the position of transition where there is some twisted appearance to the vessels, therefore a developing ischemic event would be a consideration. 2. Diffuse body wall edema, haziness of the mesenteric fat, small amount of free fluid in the pelvis which is reactive as well as minimal right, small left pleural effusion. 3. Bilateral renal cysts without nephro or ureterolithiasis. 4. Despite Rossi catheter, the bladder is distended with thickened appearance to the wall of the bladder. Underlying cystitis would be difficult to exclude. Electronically authenticated by: NAT RUELSA Date: 04/06/2023 12:30 Procedure: CT angio abdomen pelvis EXAM: CT angio abdomen pelvis HISTORY: poss volvulus COMPARISON: CT of the abdomen and pelvis from the same day TECHNIQUE: Axial CT imaging was performed with and without contrast through the abdomen, and pelvis, utilizing CTA protocol. Multiplanar reformats were performed. Dose reduction techniques were achieved by using automated exposure control and/or adjustment of mA and/or kV according to patient size and/or use of iterative reconstruction technique. FINDINGS: Lung bases: Lung bases are clear. No pleural effusion. GI upper: Unremarkable. Liver: Normal size and contour. Gallbladder: No significant abnormality. No cholelithiasis. Biliary system: No intra or extrahepatic biliary ductal dilatation. Spleen: Normal size. Pancreas: Unremarkable. Adrenal glands: Normal adrenal glands. Kidneys/ureters: Normal contours. No hydronephrosis. No nephrolithiasis or ureterolithiasis. Lymph Nodes: No lymphadenopathy. Small bowel: Oral contrast is in the stomach and proximal bowel loops. No wall thickening or dilatation. Colon: Oral contrast is seen throughout the large bowel up to the rectum. Dilated sigmoid colon is seen in the right upper abdomen with swirling of the vessels in the right lower abdomen (series 6, image 69) and collapse of the rectum and afferent and efferent transitional points in the right lower abdomen (series 6, image 52 and 68), representing sigmoid volvulus. There is circumferential wall thickening of the rectum. Appendix: No findings of appendicitis. Peritoneal cavity: No free fluid or pneumoperitoneum. Lower : Prostatomegaly. Rossi catheter balloon is seen in the urinary bladder. Bones: Compression fracture of T11 and L1. Multilevel Schmorl's nodes are noted. Soft tissues: No acute finding. Additional findings: None. VASCULAR FINDINGS: CTA ABDOMEN PELVIS: Aorta: No evidence of aneurysm, dissection, or occlusion. No significant stenosis. Right renal artery: No evidence of aneurysm, dissection, or occlusion. No significant stenosis. Left renal artery: No evidence of aneurysm, dissection, or occlusion. No significant stenosis. Celiac artery: No evidence of aneurysm, dissection, or occlusion. No significant stenosis. Superior mesenteric artery: No evidence of aneurysm, dissection, or occlusion. No significant stenosis. Inferior mesenteric artery: No evidence of aneurysm, dissection, or occlusion. No significant stenosis. PELVIC ARTERIES: Right: Common iliac artery: No evidence of aneurysm, dissection, or occlusion. No significant stenosis. External iliac artery: No evidence of aneurysm, dissection, or occlusion. No significant stenosis. Internal iliac artery: No evidence of aneurysm, dissection, or occlusion. No significant stenosis. Left: Common iliac artery: No evidence of aneurysm, dissection, or occlusion. No significant stenosis. Common external artery: No evidence of aneurysm, dissection, or occlusion. No significant stenosis. Internal iliac artery: No evidence of aneurysm, dissection, or occlusion. No significant stenosis. IMPRESSION: 1. No evidence of dissection, aneurysm, or occlusion. No evidence of venous thrombus or mesenteric vascular emboli. 2. CT evidence of sigmoid volvulus. No pneumatosis. Critical results were NOTIFIED by TELEPHONE BY Dr. Angy Brock MD to MD GUARAV At 04/06/2023 3:39 PM EST. Discharge Plan Discharge Chief Complaint: Fall Clinical Impression: Sigmoid volvulus, Closed right humeral fracture Patient Disposition: Admitted As Inpatient Time of Disposition Decision: 16:59 Condition: Good
--- NOTE | 2023-04-06 18:16 | PC.NURSE ---
Assessment completed to the best of the writing RN ability. Patient is nonverbal but can follow directions and answer yes/no questions. Patient not able to answer alert/oriented questions. Writing RN did call patient's skilled nursing to attempt to assess further history of the patient. long-term staff was able to inform writing RN that patient is usually continent of bowel. Recent swallow study was completed and it was recommended mechanical soft and no straws. writing RN informed that the patient can feed himself and usually transfers to wheelchair to go to bathroom. long-term staff also informed writing RN of the medical and surgical history that they had on file, which was updated and put in the patient's chart.
[2023-04-06] MEDS: LACTATED RINGER'S SOLUTION 1,000 ML 100 ML IV (20:26)
[2023-04-06 20:33] LABS: Glucometer 129 mg/dL (74-106)
--- NOTE | 2023-04-06 20:47 | PC.NURSE ---
patient lethargic. When RN walked into patient room and tried to talk to patient he only responded by raising his eyebrows. RN shook his arm slightly and patient did open his eyes. patient was repositioned in bed and is resting on his left side. Medications were not given per nursing judgement due to lethargy and patient not able to keep his eyes open.
--- NOTE | 2023-04-06 21:06 | RESP.RT ---
decreased down to 1L
--- NOTE | 2023-04-06 21:06 | RESP.RT ---
Pt unable to do PEP at this time.
--- NOTE | 2023-04-06 21:07 | RESP.RT ---
Pt unable to do PEP at this time.
[2023-04-07] VITALS (21 sets, daily range): BP systolic 93–159; BP diastolic 43–88; PULSE 50–80; RESP 12–22; TEMP 36.2–36.9; O2SAT 90–99
[2023-04-07 05:10] LABS: Basophils Percent Auto 0.6 % (0.2-2.0); Eosinophils Percent Auto 0.5 % (0.9-7.0); Hematocrit 34.3 % (42.0-54.0); Immature Granulocytes Abs Auto 0.02 10^3/uL (0.00-0.03); Immature Granulocytes Pct Auto 0.3 % (0.0-0.5); Lymphocytes Absolute Auto 0.4 10^3/uL (1.2-3.8); Lymphocytes Percent Auto 6.6 % (20.5-60.0); Mean Corpuscular HGB Conc 32.1 g/dL (29.9-35.2); Mean Corpuscular Hemoglobin 28.4 pg (25.9-34.0); Mean Corpuscular Volume 88.6 fL (80.0-94.0); Monocytes Absolute Auto 0.7 10^3/uL (0.3-0.8); Monocytes Percent Auto 10.2 % (1.7-12.0); Neutrophils Absolute Auto 5.2 10^3/uL (1.4-6.5); Neutrophils Percent Auto 81.8 % (43.0-75.0); Platelet Count 124 10^3/uL (150-450); Red Blood Count 3.87 10^6/uL (4.70-6.10); Red Cell Distribution Width 17.2 % (11.0-15.0); White Blood Count 6.4 10^3/uL (4.0-11.0)
[2023-04-07 05:23] LABS: Alanine Aminotransferase 41 U/L (16-63); Albumin Globulin Ratio 0.9; Alkaline Phosphatase 79 U/L (46-116); Anion Gap 12.5; Aspartate Amino Transferase 33 U/L (15-37); BUN Creatinine Ratio 27.3; Bilirubin Total 0.4 mg/dL (0.2-1.0); Calcium 8.6 mg/dL (8.5-10.1); Chloride 105 mmol/L (98-107); Estimated GFR (African America >60 (>=60); Estimated GFR (Non-African Ame >60 (>=60); Globulin 3.3 g/dL; Glucose 117 mg/dL (74-106); Potassium 3.5 mmol/L (3.5-5.1); Sodium 143 mmol/L (136-145); Total Protein 6.3 g/dL (6.4-8.2)
[2023-04-07] MEDS: MORPHINE SULFATE 2 MG/ML SYRINGE IV (05:42)
--- NOTE | 2023-04-07 05:49 | PC.NURSE ---
patient has very hypoactive bowel sounds on both right and left lower quadrants. No bowel sounds present in the bilateral upper quadrants. abdomen in firm and distended. patient is guarding abdomen with left arm. Patient is moaning and crying in the bed. A one time dose of morphine was given per physician order. Patient has not had any oral intake throughout the night.
--- NOTE | 2023-04-07 06:00 | XR_ITS ---
The [address] [address] Patient Name: MANASA NORIEGA MRN: [id number] date: 1955 Sex: M Assigned Patient Location: MS Current Patient Location: MS Accession/Order Number: [id number] Exam Date: 04/07/2023 05:20 Report Date: 04/07/2023 06:34 At the request of: JAMAR GURROLA Procedure: XR abdomen 1V EXAMINATION: XR abdomen 1V HISTORY: Volvulus of sigmoid colon; follow-up COMPARISON: CTA abdomen pelvis 04/06/2023 FINDINGS: BOWEL GAS PATTERN: Air-filled markedly dilated sigmoid colon up to 15.7 cm in diameter. Oral contrast is present within the ascending through distal descending colon without abnormal dilation. CALCIFICATIONS: None significant. OTHER: Negative. No abnormal gaseous collections. XR/XR abdomen 1V IMPRESSION: 1. Findings consistent with sigmoid volvulus resulting in air-filled markedly distended sigmoid colon; stable to slightly increased. Electronically authenticated by: ASH MULLEN Date: 04/07/2023 06:34
[2023-04-07] MEDS: LACTATED RINGER'S SOLUTION 1,000 ML 100 ML IV (06:32)
--- NOTE | 2023-04-07 07:12 | PM.GSCN ---
History of Present Illness Consult details Consult date: 04/07/23 Reason for consult: other (sigmoid volvulus) Requesting physician: Silverio Fajardo Narrative: Rizwan Gallo is a 67-year-old male that presented from a residential after he fell and broke his right humerus. The caregiver at home stated that he was having abdominal pain.I saw him in consultation at [facility] about six weeks ago for abdominal pain that resolved with conservative measures. Patient had a CT scan of the abdomen and pelvis which showed a possible volvulus yesterday and a CTA was ordered and continued to show the same.patient is nonverbal. His power of associate attorney is Leti Rock who lives locally.He has a sister who lives in [place]. Miss Rcok is his cousin and takes care of his matters. All lab work is normal. He initially came in with slightly elevated lactate of 2.7 but it went down to one within a few hours. CBC was normal and his CMP was normal as well. He was admitted and nursing this morning tells me he began having pain and she had a medicated with morphine at five forty this morning. His abdomen has become more distended and tympanitic with absent bowel sounds. There has been no nausea or vomiting. He is completely nonverbal so cannot depend on the patient for any history. Abdominal x-ray repeated this morning continues to show a sigmoid volvulus therefore he will need to be taken to surgery colectomy and colostomy. Review of Systems ROS Status of ROS unobtainable due to mental status and other (all history obtained from the chart and the caregiver from the residential a) [facility] Medical History (Updated 04/09/23 @ 09:54 by Joe Piper MD) Anemia ?D64.9 - Anemia, unspecified (ICD-10) Bipolar disorder ?F31.9 - Bipolar disorder, unspecified (ICD-10) Bradycardia ?R00.1 - Bradycardia, unspecified (ICD-10) Rossi catheter problem ?T83.9XXA - Unspecified complication of genitourinary prosthetic device, implant and graft, initial encounter (ICD-10) Hemorrhagic stroke ?I61.9 - Nontraumatic intracerebral hemorrhage, unspecified (ICD-10) Hip fracture ?S72.009A - Fracture of unspecified part of neck of unspecified femur, initial encounter for closed fracture (ICD-10) Paget's disease Stroke ?I63.9 - Cerebral infarction, unspecified (ICD-10) Surgical History Hip fracture requiring operative repair ?S72.009A - Fracture of unspecified part of neck of unspecified femur, initial encounter for closed fracture (ICD-10) History of arthroplasty of right elbow ?Z96.621 - Presence of right artificial elbow joint (ICD-10) Social History Within the past year, how often did you have a drink containing alcohol: never Within the past year, how many standard drinks containing alcohol did you have on a typical day: 1 or 2 Within the past year, how often did you have six or more drinks on one occasion: never Total score: 0 Score interpretation: A score less than 4 is consistent with normal alcohol consumption. Smoking status: Never smoker Non-prescribed substance use: denies use Meds Home Medications and Allergies Home Medications Medication Instructions Recorded Confirmed Type acetaminophen 325 mg tablet 650 mg PO Q4H PRN fever or pain 01/31/23 04/06/23 History aripiprazole 5 mg tablet 2.5 mg PO DAILY 01/31/23 04/06/23 History docusate sodium 100 mg capsule 100 mg PO BID 01/31/23 04/06/23 History fluticasone propionate 50 2 spray intranasal DAILY 01/31/23 04/06/23 History mcg/actuation nasal spray,suspension ketoconazole 2 % shampoo 1 applic topical .twice weekly 01/31/23 04/06/23 History linagliptin 5 mg tablet (Tradjenta) 5 mg PO DAILY 01/31/23 04/06/23 History lisinopril 5 mg tablet 5 mg PO DAILY 01/31/23 04/06/23 History lubiprostone 24 mcg capsule 24 mcg PO BID 01/31/23 04/06/23 History metformin 500 mg tablet,extended 1,000 mg PO BID 01/31/23 04/06/23 History release 24 hr multivitamin with folic acid 400 1 tab PO DAILY 01/31/23 04/06/23 History mcg tablet (Daily-Milton (with folic acid)) pioglitazone 15 mg tablet 15 mg PO DAILY 01/31/23 04/06/23 History sennosides 8.6 mg-docusate sodium 1 tab-cap PO BID 01/31/23 04/06/23 History 50 mg tablet (Stimulant Laxative Plus) simvastatin 5 mg tablet 5 mg PO BEDTIME 01/31/23 04/06/23 History sodium chloride 0.65 % nasal spray 2 spray intranasal Q6H PRN dry 01/31/23 04/06/23 History aerosol (Saline Mist) nasal passages tamsulosin 0.4 mg capsule 0.4 mg PO BID 01/31/23 04/06/23 History pyrilamine 7.5 mg-dextromethorphan 10 ml PO Q8H PRN cough 04/06/23 04/06/23 History 7.5 mg/5 mL oral liquid ([place] DM) Allergies Allergy/AdvReac Type Severity Reaction Status Date / Time No Known Drug Allergies Allergy Verified 01/31/23 18:14 Exam Constitutional Vital Signs, click to edit/add: Last Vital Signs Temp 97.8 F 04/07/23 04:42 Pulse 55 L 04/07/23 04:42 Resp 16 04/07/23 04:42 BP 159/88 H 04/07/23 04:42 Pulse Ox 93 L 04/07/23 05:50 O2 Del Method Nasal Cannula 04/07/23 05:50 O2 Flow Rate 1 04/07/23 05:50 Documenting provider has reviewed patient's vital signs: yes Common normals: average body habitus, healthy appearing, alert and well nourished General appearance: ill appearing Orientation/consciousness: Yes awake Respiratory Common normals: clear to auscultation bilaterally Auscultation: clear to auscultation bilaterally Cardio Common normals: regular rate, regular rhythm and no murmurs GI Inspection: abdominal distension Auscultation: absent bowel sounds and high-pitched bowel sounds Extremity Other: Right upper extremity has a splint in place due to a humeral fracture which is to be handled nonoperatively according to the Emergency Room doctors conversation with Dr. Maravilla orthopedics surgeon rehabilitation nurse. Neuro Sensorium/orientation: awake and alert Results Labs Labs: Abnormal lab results 04/06/23 04/06/23 04/06/23 Range/Units 08:38 09:30 20:32 RBC 3.97 L (4.70-6.10) 10^6/uL Hgb 11.4 L (14.0-18.0) g/dL Hct 36.4 L (42.0-54.0) % RDW 17.3 H (11.0-15.0) % Plt Count 131 L (150-450) 10^3/uL Neut % (Auto) (43.0-75.0) % Lymph % (Auto) (20.5-60.0) % Eos % (Auto) (0.9-7.0) % Lymph # (Auto) (1.2-3.8) 10^3/uL Band Neutrophils % 7.0 H (0-5) % Lymphocytes % (Manual) 2.0 L (20.5-60.0) % Eosinophils % (Manual) 0.0 L (0.9-7.0) % Basophils % (Manual) 0.0 L (0.2-2.0) % Neutrophils # (Manual) 7.90 H (1.4-6.5) 10^3/uL Band Neutrophils # 0.7 H (0.0-0.3) 10^3/uL Lymphocytes # (Manual) 0.18 L (1.20-3.80) 10^3/uL Sodium 135 L (136-145) mmol/L Chloride 97 L (98-107) mmol/L BUN 35.0 H (7.0-18.0) mg/dL Glucose 193 H (74-106) mg/dL Lactate 2.7 H* (0.4-2.0) mmol/L Total Protein (6.4-8.2) g/dL Albumin (3.4-5.0) g/dL Urine pH >=9.0 A (5.0-9.0) Ur Specific [place] <=1.005 A (1.005-1.025) Urine Protein 100 A (NEG/TRACE) mg/dL Urine Occult Blood Small A (NEGATIVE) Ur Leukocyte Esterase Small A (NEGATIVE) Urine WBC 0-2 A (NONE SEEN) #/HPF Urine Crystals Seen A (None Seen) #/HPF Urine Bacteria Trace A (NONE SEEN) #/HPF POC Glucose 129 H (74-106) mg/dL 11/24/23 Range/Units 04:31 RBC 3.87 L (4.70-6.10) 10^6/uL Hgb 11.0 L (14.0-18.0) g/dL Hct 34.3 L (42.0-54.0) % RDW 17.2 H (11.0-15.0) % Plt Count 124 L (150-450) 10^3/uL Neut % (Auto) 81.8 H (43.0-75.0) % Lymph % (Auto) 6.6 L (20.5-60.0) % Eos % (Auto) 0.5 L (0.9-7.0) % Lymph # (Auto) 0.4 L (1.2-3.8) 10^3/uL Band Neutrophils % (0-5) % Lymphocytes % (Manual) (20.5-60.0) % Eosinophils % (Manual) (0.9-7.0) % Basophils % (Manual) (0.2-2.0) % Neutrophils # (Manual) (1.4-6.5) 10^3/uL Band Neutrophils # (0.0-0.3) 10^3/uL Lymphocytes # (Manual) (1.20-3.80) 10^3/uL Sodium (136-145) mmol/L Chloride (98-107) mmol/L BUN 21.0 H (7.0-18.0) mg/dL Glucose 117 H (74-106) mg/dL Lactate (0.4-2.0) mmol/L Total Protein 6.3 L (6.4-8.2) g/dL Albumin 3.0 L (3.4-5.0) g/dL Urine pH (5.0-9.0) Ur Specific [place] (1.005-1.025) Urine Protein (NEG/TRACE) mg/dL Urine Occult Blood (NEGATIVE) Ur Leukocyte Esterase (NEGATIVE) Urine WBC (NONE SEEN) #/HPF Urine Crystals (None Seen) #/HPF Urine Bacteria (NONE SEEN) #/HPF POC Glucose (74-106) mg/dL Diabetes panel 04/06/23 04/07/23 Range/Units 08:38 04:31 Sodium 135 L 143 (136-145) mmol/L Potassium 4.3 3.5 (3.5-5.1) mmol/L Chloride 97 L 105 (98-107) mmol/L Carbon Dioxide 25.8 29.0 (21.0-32.0) mmol/L BUN 35.0 H 21.0 H (7.0-18.0) mg/dL Creatinine 0.88 0.77 (0.70-1.30) mg/dL Glucose 193 H 117 H (74-106) mg/dL Calcium 8.8 8.6 (8.5-10.1) mg/dL AST 33 (15-37) U/L ALT 41 (16-63) U/L Alkaline Phosphatase 79 (46-116) U/L Total Protein 6.3 L (6.4-8.2) g/dL Albumin 3.0 L (3.4-5.0) g/dL Calcium panel 04/06/23 04/07/23 Range/Units 08:38 04:31 Calcium 8.8 8.6 (8.5-10.1) mg/dL Albumin 3.0 L (3.4-5.0) g/dL Pituitary panel 04/06/23 04/07/23 Range/Units 08:38 04:31 Sodium 135 L 143 (136-145) mmol/L Potassium 4.3 3.5 (3.5-5.1) mmol/L Chloride 97 L 105 (98-107) mmol/L Carbon Dioxide 25.8 29.0 (21.0-32.0) mmol/L BUN 35.0 H 21.0 H (7.0-18.0) mg/dL Creatinine 0.88 0.77 (0.70-1.30) mg/dL Glucose 193 H 117 H (74-106) mg/dL Calcium 8.8 8.6 (8.5-10.1) mg/dL Adrenal panel 04/06/23 04/07/23 Range/Units 08:38 04:31 Sodium 135 L 143 (136-145) mmol/L Potassium 4.3 3.5 (3.5-5.1) mmol/L Chloride 97 L 105 (98-107) mmol/L Carbon Dioxide 25.8 29.0 (21.0-32.0) mmol/L BUN 35.0 H 21.0 H (7.0-18.0) mg/dL Creatinine 0.88 0.77 (0.70-1.30) mg/dL Glucose 193 H 117 H (74-106) mg/dL Calcium 8.8 8.6 (8.5-10.1) mg/dL Total Bilirubin 0.4 (0.2-1.0) mg/dL AST 33 (15-37) U/L ALT 41 (16-63) U/L Alkaline Phosphatase 79 (46-116) U/L Total Protein 6.3 L (6.4-8.2) g/dL Albumin 3.0 L (3.4-5.0) g/dL All other labs normal. 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 Rock his POA about the need for surgery because without surgery he would probably . He is a DNR CC but that will be rescinded during surgery and then afterwards he would go back to that.I discussed the need for sigmoid colon resection with colostomy and the risks benefits and alternatives to the procedure could include bleeding, infection, blood clots to the legs or lungs, pneumonia, stroke, and/or . She voiced understanding of the above and wish for the patient to have surgery. He may need to go to the ICU after surgery. This would be a CPT 57292-50
[2023-04-07] MEDS: CEFAZOLIN SODIUM/DEXTROSE,ISO 2 GM/50 ML PIGGYBACK IV (07:40)
--- NOTE | 2023-04-07 07:45 | PM.GSPRC ---
Date of procedure: 04/07/23 Indications for Procedure: sigmoid volvulus Pre-op diagnosis: sigmoid volvulus;umbilical hernia Post-op diagnosis: same as pre-op Procedure: #1.sigmoid colon resection with end colostomy and Mclean's procedure #2.takedown of splenic flexure #3. Repair of umbilical hernia Findings: sigmoid volvulus; umbilical hernia Anesthesia: ROBEA Surgeon: Andrew Marinelli Procedure Summary: 67-year-old male with history of MRDD that resides in a [facility] presented to the hospital yesterday with possible volvulus and patient was observed overnight and had repeat abdominal x-ray performed this morning which continues to show a volvulus. His nurse reported that he began having increased abdominal distention and pain.therefore decision was made taken to the OR after speaking to his POA Mrs. Rock. She was given the choice of doing nothing and told that he could or going to surgery and having a colostomy and colon resection performed. Risks benefits and alternatives to surgery were explained to the POA. She agreed to surgery.this will be a permanent colostomy for this patient. Patient was taken to the operating suite placed in the supine position and given a general anesthetic by the route sales delivery drivers supervisor. A Rossi catheter been placed in the bladder yesterday in the Emergency Department and NG tube was placed by anesthesia. The abdomen was prepped and draped usual sterile fashion and preoperative antibiotics were given and SCDs were placed on bilateral lower extremities. Preoperative timeout was taken and everyone was in agreement with the procedure. Upon entering the abdomen patient had significant dilatation of the sigmoid and descending colon.he had a large amount of redundant colon. Dissection was begun along the line of T[place]t laterally on the left side down to the rectosigmoid junction. A window was made in the mesial colon just above the rectum and a contour stapler was placed across the colon. Next the splenic flexure was taken down with LigaSure device maintaining hemostasis. Then the vasculature to the entire descending and sigmoid colon were taken down with LigaSure device maintaining hemostasis. A window was made in the mesocolon on the distal transverse colon with a DALIA stapler because there was much redundancy.the colon was then removed from the field and submitted for pathology. Next the colostomy was made in the left upper quadrant of the abdomen by takiing cautery and making a circular skin incision down subcutaneous tissue and then making a skin incision in the anterior rectus fascia and putting a finger into the peritoneal cavity. The stapled transverse colon was brought up through the ostomy and secured underneath with 3-0 Vicryl suture in interrupted fashion to the tinea and the transverse colon. There was no tension. The abdominal cavity was checked for hemostasis which was maintained and then all lap pads and retractors were removed from the abdomen and the anterior rectus fascia was closed with 0 PDS suture in a running continuous fashion. There was an umbilical hernia that was taken down with electrocautery and the hernia sac was sent for pathology. This was incorporated into our closure. The umbilical hernia was repaired. Skin clips were used to close the skin. Next the colostomy was matured by opening the previous the stapled end and taking 30 Vicryls in four-point fashion and suturing through the colonic mucosa and a bite of the colon and then the skin making a nice [place] river ostomy. 3-0 Vicryl's were then placed in between those other areas to mature the colostomy. A colostomy bag was then placed. Sponge needle and management counts were correct. Case was emergency clean contaminated. Canvass Manager: CALI Mccracken Estimated blood loss (mL): 20 Specimens: sigmoid colon Complications: No Condition: stable Disposition: PACU
[2023-04-07] MEDS: METRONIDAZOLE/SODIUM CHLORIDE 500 MG/100 ML PREMIX 100 MG IV (07:58)
--- NOTE | 2023-04-07 08:11 | CM.NOTE ---
Rounds made by Dr. Espinoza this am before going to surgery.
--- NOTE | 2023-04-07 08:32 | P.HP_ITS ---
H&P: HPI History of Present Illness Chief complaint: FALL, Sigmoid Volvulus, Right Humerus Fracture Narrative: Has a very complicated past medical history currently residing in a [facility] secondary to previous stroke. Patient sustained a fall. Found to have a right humeral fracture. Caregiver also noted patient was having some abdominal pain recently. In ER CT scan with a CTA confirmed volvulus but no vascular insult. Patient was admitted for workup and treatment of same. Review of Systems ROS Narrative Unable to do review of systems as patient is nonverbal, no family present currently [facility] Medical History Anemia ?D64.9 - Anemia, unspecified (ICD-10) Bipolar 1 disorder ?F31.9 - Bipolar disorder, unspecified (ICD-10) Bradycardia ?R00.1 - Bradycardia, unspecified (ICD-10) Diabetes ?E11.9 - Type 2 diabetes mellitus without complications (ICD-10) Hip fracture ?S72.009A - Fracture of unspecified part of neck of unspecified femur, initial encounter for closed fracture (ICD-10) Hypertension ?I10 - Essential (primary) hypertension (ICD-10) Intracerebellar and posterior fossa hemorrhage ?I61.4 - Nontraumatic intracerebral hemorrhage in cerebellum (ICD-10) ?I61.8 - Other nontraumatic intracerebral hemorrhage (ICD-10) Neurogenic bladder ?N31.9 - Neuromuscular dysfunction of bladder, unspecified (ICD-10) Stroke ?I63.9 - Cerebral infarction, unspecified (ICD-10) Surgical History Hip fracture requiring operative repair ?S72.009A - Fracture of unspecified part of neck of unspecified femur, initial encounter for closed fracture (ICD-10) History of arthroplasty of right elbow ?Z96.621 - Presence of right artificial elbow joint (ICD-10) Social History Within the past year, how often did you have a drink containing alcohol: never Within the past year, how many standard drinks containing alcohol did you have on a typical day: 1 or 2 Within the past year, how often did you have six or more drinks on one occasion: never Total score: 0 Score interpretation: A score less than 4 is consistent with normal alcohol consumption. Smoking status: Never smoker Non-prescribed substance use: denies use Meds Home Medications and Allergies Home Medications Medication Instructions Recorded Confirmed Type acetaminophen 325 mg tablet 650 mg PO Q4H PRN fever or pain 01/31/23 04/06/23 History aripiprazole 5 mg tablet 2.5 mg PO DAILY 01/31/23 04/06/23 History docusate sodium 100 mg capsule 100 mg PO BID 01/31/23 04/06/23 History fluticasone propionate 50 2 spray intranasal DAILY 01/31/23 04/06/23 History mcg/actuation nasal spray,suspension ketoconazole 2 % shampoo 1 applic topical .twice weekly 01/31/23 04/06/23 History linagliptin 5 mg tablet (Tradjenta) 5 mg PO DAILY 01/31/23 04/06/23 History lisinopril 5 mg tablet 5 mg PO DAILY 01/31/23 04/06/23 History lubiprostone 24 mcg capsule 24 mcg PO BID 01/31/23 04/06/23 History metformin 500 mg tablet,extended 1,000 mg PO BID 01/31/23 04/06/23 History release 24 hr multivitamin with folic acid 400 1 tab PO DAILY 01/31/23 04/06/23 History mcg tablet (Daily-Milton (with folic acid)) pioglitazone 15 mg tablet 15 mg PO DAILY 01/31/23 04/06/23 History sennosides 8.6 mg-docusate sodium 1 tab-cap PO BID 01/31/23 04/06/23 History 50 mg tablet (Stimulant Laxative Plus) simvastatin 5 mg tablet 5 mg PO BEDTIME 01/31/23 04/06/23 History sodium chloride 0.65 % nasal spray 2 spray intranasal Q6H PRN dry 01/31/23 04/06/23 History aerosol (Saline Mist) nasal passages tamsulosin 0.4 mg capsule 0.4 mg PO BID 01/31/23 04/06/23 History pyrilamine 7.5 mg-dextromethorphan 10 ml PO Q8H PRN cough 04/06/23 04/06/23 History 7.5 mg/5 mL oral liquid ([place] DM) Allergies Allergy/AdvReac Type Severity Reaction Status Date / Time No Known Drug Allergies Allergy Verified 01/31/23 18:14 Exam Constitutional Vital Signs, click to edit/add: Last Vital Signs Temp 97.8 F 04/07/23 04:42 Pulse 55 L 04/07/23 04:42 Resp 16 04/07/23 04:42 BP 159/88 H 04/07/23 04:42 Pulse Ox 93 L 04/07/23 05:50 O2 Del Method Nasal Cannula 04/07/23 05:50 O2 Flow Rate 1 04/07/23 05:50 Documenting provider has reviewed patient's vital signs: yes Common normals: apparent distress (Appears to be in painful distress) HENMT Common normals: normocephalic; oral mucous membranes not moist Chest Common normals: inspection of chest normal Respiratory Common normals: normal respiratory effort Effort & inspection: no retractions Auscultation: diminished lung sounds Cardio Common normals: regular rate and regular rhythm; murmurs detected Heart sounds: murmur (3/6) systolic GI Common normals: negative for Normal to inspection, nondistended, normoactive bowel sounds present and tender Inspection: abdominal distension Palpation: guarding Results Labs Labs: Short CBC 04/06/23 04/07/23 Range/Units 08:38 04:31 WBC 9.3 6.4 (4.0-11.0) 10^3/uL Hgb 11.4 L 11.0 L (14.0-18.0) g/dL Hct 36.4 L 34.3 L (42.0-54.0) % Plt Count 131 L 124 L (150-450) 10^3/uL BMP 04/06/23 04/07/23 08:38 04:31 Sodium 135 L 143 Potassium 4.3 3.5 Chloride 97 L 105 Carbon Dioxide 25.8 29.0 BUN 35.0 H 21.0 H Creatinine 0.88 0.77 Glucose 193 H 117 H Calcium 8.8 8.6 Cardiac Enzymes 04/06/23 Range/Units 08:38 Total Creatine Kinase 137 (39-308) U/L Liver Function 04/07/23 Range/Units 04:31 Total Bilirubin 0.4 (0.2-1.0) mg/dL AST 33 (15-37) U/L ALT 41 (16-63) U/L Alkaline Phosphatase 79 (46-116) U/L Albumin 3.0 L (3.4-5.0) g/dL Urine 04/06/23 Range/Units 09:30 Urine Color Lt. yellow (YELLOW) Urine Clarity Clear (CLEAR) Urine pH >=9.0 A (5.0-9.0) Ur Specific [place] <=1.005 A (1.005-1.025) Urine Protein 100 A (NEG/TRACE) mg/dL Urine Glucose (UA) Negative (NEGATIVE) mg/dL Assessment and Plan Assessment and Plan (1) Sigmoid volvulus: (2) Closed right humeral fracture: (3) Rossi catheter problem: (4) Bipolar 1 disorder: (5) Diabetes: (6) Hypertension: (7) Neurogenic bladder: (8) Anemia: Plan Sinus tachycardia, respiratory distress, uncontrolled hypertension due to sigmoid volvulus: + lactate, bandemia, thrombocytopenia. Criteria for sepsis syndrome. Pt has improved with clearing of lactate, bandemia resolved, Pt was take to OR for sigmoid resection and colostomy placed. With resolution in bandemia, quick clearing of lactate, pt was not started on longer antibiotics, just pre-op antibiotics. Thrombocytopenia - monitor daily Iron deficiency anemia - Monitor daily - check stool for Occ Blood Right humeral fracture - case discussed with ortho - nonsurgical Bipolar disorder-we will change patient to just Jude. Once he is able to take oral medications can reinstitute his home medications NIDDM-insulin sliding scale. Holding off on oral agents currently. History of CVA-need to watch neurological changes closely. Baseline per staff
[2023-04-07] MEDS: LACTATED RINGER'S SOLUTION 1,000 ML 50 ML IV (09:25)
[2023-04-07] MEDS: BUPIVACAINE LIPOSOME/PF 266 MG/13.3 ML VIAL INJ (09:46)
[2023-04-07] MEDS: 0.9 % SODIUM CHLORIDE 10 ML SYRINGE - SALINE FLUSH 20 ML INJ (09:46)
[2023-04-07] MEDS: BUPIVACAINE HCL 0.25% PF 25 MG/10 ML VIAL INJ (10:26)
--- NOTE | 2023-04-07 11:07 | CM.NOTE ---
Discussed with Leti LONG and pt's sister by telephone discharge planning. JESICADeidre and sister are requesting pt go to skilled facility at discharge. They verbalize pt has been to [facility] multiple times and wishes are for him to go back there for skilled if possible. Spoke with Kylah and they would be in agreement for pt to return to fpc after skilled therapy ([facility]).
[2023-04-07 11:25] LABS: Glucometer 140 mg/dL (74-106)
--- NOTE | 2023-04-07 11:26 | CM.NOTE ---
Spoke with Vicky at [facility] and fax clinical for new referral.
--- NOTE | 2023-04-07 11:45 | CA_ITS ---
Patient Name: MANASA NORIEGA MR#: [id number] : 1955 Exam Date: 04/07/2023 Ordering Doctor: DR Edd Espinoza . ECHOCARDIOGRAM REPORT PROCEDURE: CA ECHO DOPPLER COMPLETE INDICATIONS: New murmur, hypertension COMPARISON: None. DESCRIPTION: COMPLETE ECHOCARDIOGRAM Real-time transthoracic echocardiography with 2D, M-mode, spectral and color flow Doppler performed. QUALITY: Technical quality was good. 63 129# BSA 1.61 m2 LEFT VENTRICLE: Normal chamber size. Thickened septal wall. LV EF: Global left ventricular systolic function is hyperdynamic; visually estimated ejection fraction is 65 to 70%. No significant wall motion abnormalities. DIASTOLIC: Normal diastolic function. ATRIAL SEPTUM: Visually appears intact. LEFT ATRIUM: Moderately dilated. RIGHT ATRIUM: Normal chamber size. RIGHT VENTRICLE: Normal chamber size. Normal right ventricular systolic function. TRICUSPID VALVE: Normal mobility and thickness. Mild regurgitation. Doppler studies reveal mildly (35-45) elevated right sided pressures. RVSP 39 mmHg MITRAL VALVE: Mildly thickened with normal mobility. No evidence of mitral valve stenosis. There is no mitral annular calcification. Trivial mitral regurgitation. AORTIC VALVE: The aortic valve is probably trileaflet. Moderately calcified aortic valve. No evidence of aortic valve stenosis. No aortic regurgitation. AORTIC ROOT: Normal in size. PULMONIC VALVE: Normal thickness and mobility. No stenosis. No regurgitation. PERICARDIUM: No evidence of pericardial effusion. IVC: Not well visualized. CONCLUSION: 1. Global left ventricular systolic function is hyperdynamic; visually estimated ejection fraction is 65 to 70% 2. The right ventricle is normal in size systolic function 3. Normal diastolic function 4. The left atrium is dilated 5. Mild tricuspid regurgitation 6. Mildly elevated right ventricular systolic pressure; RVSP 39 mmHg Adult Echocardiography Procedure Report Left Ventricle LVEDD (3.7 - 5.6 cm): 4.33 cm LVESD (2.2 - 4.0 cm): 3.42 cm LVIVS thickness (0.6 - 1.2 cm): 1.27 cm LVPW thickness (0.5 - 1.0 cm): 0.81 cm e': 0.12 m/s E - e': 5.75 LVOT Max Gradient: 5.22 mm[Hg] LVOT Area (cm2): 1.14 m/s Peak Velocity (LVOT): 1.14 m/s Mean Velocity (LVOT): 0.78 m/s LVOT Diameter 2.58 cm Left Atrium LA Volume Index (2D A2C): 50.44 ml/m2 Left Atrium Systolic Dimension: 4.37 cm Mitral Valve MV E to A Ratio: 1.23 Mitral Valve A-Wave Peak Velocity: 0.55 m/s Mitral Valve E-Wave Peak Velocity: 0.68 m/s Right Ventricle Aorta AO Root Diam: 3.19 cm Aortic Valve AoV Area (Peak Yaw): 3.22 cm2, 3.22 cm2 AoV Area (VTI): 3.79 cm2, 3.79 cm2 Peak Velocity(Antegrade Flow): 1.85 m/s Peak Gradient(Antegrade Flow): 13.74 mm[Hg] Mean Velocity(Antegrade Flow): 1.21 m/s Mean Gradient(Antegrade Flow): 6.61 mm[Hg] Velocity Time Integral: 43.70 cm Tricuspid Valve Peak Velocity (Regurgitant Flow): 2.99 m/s, 2.89 m/s, 2.78 m/s Pulmonic Valve Peak Velocity: 1.17 m/s Peak Gradient: 6.17 mm[Hg], 4.84 mm[Hg] Right Atrium Right Atrium Systolic Pressure: 28.85 ml, 28.85 ml Dictated by: Miranda Trejo M.D. on 04/11/2023 at 15:51 Approved by: Miranda Trejo M.D. on 04/11/2023 at 15:56
--- NOTE | 2023-04-07 12:00 | CM.NOTE ---
Important Message From Medicare discussed with pt's POA, paper signed and original given to pt and copy placed on pt's chart. Notified Dorys( wound care) regarding pt's new colostomy.
--- NOTE | 2023-04-07 12:03 | CM.NOTE ---
Vikcy from [facility] called back and they are able to accept pt when pt is medically stable for discharge. Updated pt's POA.
--- NOTE | 2023-04-07 12:06 | CM.NOTE ---
Updated Dr. Espinoza on discharge plans for pt.
[2023-04-07 16:08] LABS: Glucometer 166 mg/dL (74-106)
[2023-04-07] MEDS: 0.9 % SODIUM CHLORIDE 1,000 ML 100 ML IV (20:46)
[2023-04-07 20:58] LABS: Glucometer 242 mg/dL (74-106)
[2023-04-07 22:00] LABS: Basophils Percent Auto 0.1 % (0.2-2.0); Hematocrit 25.6 % (42.0-54.0); Hemoglobin 8.2 g/dL (14.0-18.0); Immature Granulocytes Abs Auto 0.06 10^3/uL (0.00-0.03); Immature Granulocytes Pct Auto 0.5 % (0.0-0.5); Lymphocytes Absolute Auto 0.3 10^3/uL (1.2-3.8); Lymphocytes Percent Auto 2.9 % (20.5-60.0); Mean Corpuscular Hemoglobin 29.4 pg (25.9-34.0); Mean Corpuscular Volume 91.8 fL (80.0-94.0); Mean Platelet Volume 14.3 fL (9.5-13.5); Monocytes Absolute Auto 0.7 10^3/uL (0.3-0.8); Monocytes Percent Auto 5.5 % (1.7-12.0); Neutrophils Absolute Auto 10.8 10^3/uL (1.4-6.5); Platelet Count 156 10^3/uL (150-450); Red Blood Count 2.79 10^6/uL (4.70-6.10); Red Cell Distribution Width 17.3 % (11.0-15.0); White Blood Count 11.9 10^3/uL (4.0-11.0)
[2023-04-07 22:19] LABS: Alanine Aminotransferase 84 U/L (16-63); Albumin Globulin Ratio 0.9; Albumin Level 2.5 g/dL (3.4-5.0); Alkaline Phosphatase 59 U/L (46-116); Anion Gap 14.5; Aspartate Amino Transferase 85 U/L (15-37); BUN Creatinine Ratio 25.7; Bilirubin Total 0.5 mg/dL (0.2-1.0); Calcium 8.1 mg/dL (8.5-10.1); Carbon Dioxide 25.7 mmol/L (21.0-32.0); Chloride 105 mmol/L (98-107); Estimated GFR (African America >60 (>=60); Estimated GFR (Non-African Ame 51 (>=60); Globulin 2.8 g/dL; Glucose 227 mg/dL (74-106); Potassium 4.2 mmol/L (3.5-5.1); Sodium 141 mmol/L (136-145); Total Protein 5.3 g/dL (6.4-8.2)
[2023-04-08] VITALS (21 sets, daily range): BP systolic 96–129; BP diastolic 52–81; PULSE 64–77; RESP 16–20; TEMP 36.5–36.7; O2SAT 62–922
[2023-04-08 05:02] LABS: Basophils Percent Auto 0.2 % (0.2-2.0); Hemoglobin 7.2 g/dL (14.0-18.0); Immature Granulocytes Abs Auto 0.05 10^3/uL (0.00-0.03); Immature Granulocytes Pct Auto 0.5 % (0.0-0.5); Lymphocytes Absolute Auto 0.6 10^3/uL (1.2-3.8); Lymphocytes Percent Auto 5.9 % (20.5-60.0); Mean Corpuscular HGB Conc 31.3 g/dL (29.9-35.2); Mean Corpuscular Hemoglobin 28.6 pg (25.9-34.0); Mean Corpuscular Volume 91.3 fL (80.0-94.0); Monocytes Absolute Auto 0.8 10^3/uL (0.3-0.8); Monocytes Percent Auto 8.1 % (1.7-12.0); Neutrophils Absolute Auto 7.9 10^3/uL (1.4-6.5); Neutrophils Percent Auto 85.3 % (43.0-75.0); Platelet Count 134 10^3/uL (150-450); Red Blood Count 2.52 10^6/uL (4.70-6.10); Red Cell Distribution Width 17.3 % (11.0-15.0); White Blood Count 9.3 10^3/uL (4.0-11.0)
[2023-04-08 05:27] LABS: Alanine Aminotransferase 126 U/L (16-63); Albumin Globulin Ratio 0.9; Albumin Level 2.4 g/dL (3.4-5.0); Alkaline Phosphatase 59 U/L (46-116); Anion Gap 15.2; Aspartate Amino Transferase 145 U/L (15-37); BUN Creatinine Ratio 25.6; Bilirubin Total 0.3 mg/dL (0.2-1.0); Carbon Dioxide 25.1 mmol/L (21.0-32.0); Chloride 106 mmol/L (98-107); Estimated GFR (African America 51 (>=60); Estimated GFR (Non-African Ame 42 (>=60); Globulin 2.8 g/dL; Glucose 213 mg/dL (74-106); Potassium 4.3 mmol/L (3.5-5.1); Sodium 142 mmol/L (136-145); Total Protein 5.2 g/dL (6.4-8.2)
[2023-04-08] MEDS: 0.9 % SODIUM CHLORIDE 1,000 ML 100 ML IV ×2 (06:35→20:55)
[2023-04-08] MEDS: MORPHINE SULFATE 2 MG/ML SYRINGE IV ×5 (07:55→21:00)
[2023-04-08 07:59] LABS: Glucometer 223 mg/dL (74-106)
[2023-04-08] MEDS: 0.9 % SODIUM CHLORIDE 250 ML 10 ML IV (09:40)
[2023-04-08] MEDS: PANTOPRAZOLE SODIUM 40 MG VIAL IV (10:51)
[2023-04-08 11:03] LABS: Glucometer 219 mg/dL (74-106)
--- NOTE | 2023-04-08 11:22 | PM.PN ---
Progress Note: Subjective Subjective Interval history: Patient stable after surgery. Nonverbal but can answer yes or no questions. C/o increased pain and given IV morphine. Stoma pink with dark red output. Afebrile. Vitals stable. Hgb decreased overnight and after surgery. Currently getting PRBC. No SOB or cough. Exam Constitutional Vital Signs, click to edit/add: Last Vital Signs Temp 97.9 F 04/08/23 10:34 Pulse 75 04/08/23 10:34 Resp 16 04/08/23 10:34 BP 96/52 04/08/23 10:34 Pulse Ox 95 04/08/23 10:34 O2 Del Method Nasal Cannula 04/08/23 10:34 O2 Flow Rate 3 04/08/23 10:34 Documenting provider has reviewed patient's vital signs: yes Common normals: no apparent distress and alert HENMT Common normals: normocephalic Eye Common normals: PERRL and EOMs intact bilaterally Respiratory Common normals: normal respiratory effort and clear to auscultation bilaterally Cardio Common normals: regular rate, regular rhythm, no gallops, no murmurs and no rub GI Common normals: soft to palpation and non-tender Inspection: normal to inspection (Stoma appears normal, dressing clean and dry) Auscultation: hypoactive bowel sounds Extremity Common normals: no pedal edema Progress Note: Objective Labs Labs: Short CBC 04/07/23 04/08/23 Range/Units 21:55 04:46 WBC 11.9 H 9.3 (4.0-11.0) 10^3/uL Hgb 8.2 L 7.2 L (14.0-18.0) g/dL Hct 25.6 L 23.0 L* (42.0-54.0) % Plt Count 156 134 L (150-450) 10^3/uL BMP 04/07/23 04/08/23 21:55 04:46 Sodium 141 142 Potassium 4.2 4.3 Chloride 105 106 Carbon Dioxide 25.7 25.1 BUN 36.0 H 42.0 H Creatinine 1.40 H 1.64 H Glucose 227 H 213 H Calcium 8.1 L 8.0 L Liver Function 04/07/23 04/08/23 Range/Units 21:55 04:46 Total Bilirubin 0.5 0.3 (0.2-1.0) mg/dL AST 85 H 145 H (15-37) U/L ALT 84 H 126 H (16-63) U/L Alkaline Phosphatase 59 59 (46-116) U/L Albumin 2.5 L 2.4 L (3.4-5.0) g/dL Progress Note: A&P Assessment and Plan (1) Sigmoid volvulus: (2) Closed right humeral fracture: (3) Acute postoperative anemia due to expected blood loss: (4) LOVE (acute kidney injury): (5) Diabetes: (6) Hypertension: (7) Neurogenic bladder: (8) Umbilical hernia: (9) Bipolar 1 disorder: (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 Hgb decreased and giving 2 units PRBC. Monitor labs. Vitals stable. Morphine ordered for pain. On clear liquid diet and will give as tolerated.
[2023-04-08] MEDS: FUROSEMIDE 20 MG/2 ML VIAL IVP (12:12)
--- NOTE | 2023-04-08 12:24 | PC.NURSE ---
ostomy put out 25ml of cranberry juice colored liquid.
[2023-04-08 14:53] LABS: Basophils Percent Auto 0.5 % (0.2-2.0); Eosinophils Percent Auto 0.1 % (0.9-7.0); Hematocrit 26.8 % (42.0-54.0); Hemoglobin 8.8 g/dL (14.0-18.0); Immature Granulocytes Abs Auto 0.04 10^3/uL (0.00-0.03); Immature Granulocytes Pct Auto 0.5 % (0.0-0.5); Lymphocytes Absolute Auto 0.6 10^3/uL (1.2-3.8); Lymphocytes Percent Auto 6.5 % (20.5-60.0); Mean Corpuscular HGB Conc 32.8 g/dL (29.9-35.2); Mean Corpuscular Hemoglobin 29.2 pg (25.9-34.0); Mean Platelet Volume 14.1 fL (9.5-13.5); Monocytes Absolute Auto 0.8 10^3/uL (0.3-0.8); Monocytes Percent Auto 9.6 % (1.7-12.0); Neutrophils Absolute Auto 7.1 10^3/uL (1.4-6.5); Neutrophils Percent Auto 82.8 % (43.0-75.0); Platelet Count 110 10^3/uL (150-450); Red Blood Count 3.01 10^6/uL (4.70-6.10); White Blood Count 8.5 10^3/uL (4.0-11.0)
--- NOTE | 2023-04-08 15:53 | PM.GSPN ---
Progress Note: A&P Assessment and Plan (1) Sigmoid volvulus: Assessment and Plan: POD #1 S/P Sigmoid resection due to volvulous. His H/H were significantly lower this morning and 2 units of PRBC's were given. Clinically stable. Given that he is unable to cooperate to consistently use the IS, Albuterol aerosols have been ordered. 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 He indicates that he is having abdominal pain. Exam Constitutional Vital Signs, click to edit/add: Last Vital Signs Temp 97.9 F 04/08/23 13:21 Pulse 71 04/08/23 13:21 Resp 16 04/08/23 13:21 BP 119/81 04/08/23 13:21 Pulse Ox 98 04/08/23 13:21 O2 Del Method Nasal Cannula 04/08/23 13:21 O2 Flow Rate 3 04/08/23 13:21 Other: Awake and alert; unable to determine orientation Respiratory Other: Breathing comfortably; no coughing or wheezing GI Other: Abdomen is soft and appropriately tender; the surgical dressing has been replaced and is currently dry and intact. The LLQ stoma is very edematous but is pink and healthy appearing. Urinary Catheter Management Urinary Catheter Management Urethral: Cath placed during this visit: yes Urethral indwelling: No Reason for continuing: other continuation reason Insertion date: 04/06/23 Insertion time: 12:00
[2023-04-08 16:22] LABS: Glucometer 161 mg/dL (74-106)
[2023-04-08] MEDS: ALBUTEROL SULFATE 2.5 MG/3 ML VIAL NEB IH ×2 (16:23→20:04)
--- NOTE | 2023-04-08 16:38 | RESP.RT ---
titrated down to 2L
[2023-04-08 20:17] LABS: Basophils Percent Auto 0.4 % (0.2-2.0); Eosinophils Percent Auto 0.1 % (0.9-7.0); Hematocrit 25.5 % (42.0-54.0); Hemoglobin 8.1 g/dL (14.0-18.0); Immature Granulocytes Abs Auto 0.12 10^3/uL (0.00-0.03); Immature Granulocytes Pct Auto 1.7 % (0.0-0.5); Lymphocytes Absolute Auto 0.5 10^3/uL (1.2-3.8); Lymphocytes Percent Auto 7.7 % (20.5-60.0); Mean Corpuscular HGB Conc 31.8 g/dL (29.9-35.2); Mean Corpuscular Hemoglobin 27.9 pg (25.9-34.0); Mean Corpuscular Volume 87.9 fL (80.0-94.0); Mean Platelet Volume 14.2 fL (9.5-13.5); Monocytes Absolute Auto 0.6 10^3/uL (0.3-0.8); Monocytes Percent Auto 8.9 % (1.7-12.0); Neutrophils Absolute Auto 5.7 10^3/uL (1.4-6.5); Neutrophils Percent Auto 81.2 % (43.0-75.0); Platelet Count 101 10^3/uL (150-450); Red Cell Distribution Width 18.5 % (11.0-15.0)
[2023-04-08 20:40] LABS: Glucometer 162 mg/dL (74-106)
--- NOTE | 2023-04-08 21:38 | PC.NURSE ---
SPO2 declined steadily, RN Mimi notified. Lowest reading of 47% with appropriate waveform noted. Hospital Research Hydraulic Engineer and RT Martine notified and into assess patient with primary RN. No change in HR noted on Pulse Oximetry monitor.
--- NOTE | 2023-04-08 21:53 | PC.NURSE ---
RN received a call from ADVERTISING OPERATIONS MANAGER who was watching the monitors, she stated his pulse ox was at 75, RN ran to the room and his pulse ox on the monitor was 33% on 3 L nasal cannula. his color was very pale and pasty. His eyes were rolled back. Patient has been lethargic throughout the evening. RN used a sternal rub and yelled his name, he then gasped for air. His pulse ox came back up to 98%. This episode only lasted a couple minutes. Nursing fireworks assembly supervisor was in the room and respiratory therapy was called. Lung sounds were still clear and diminished throughout. Tele-hospitalist made aware and tele-visit completed. Tele-hospitlist stated it might have been a vagal response, however, the heart rate never changed when the pulse ox decreased. BP is 126/65; heart rate 70 STAT CBC and CMP were ordered and awaiting results. RN made hospitalist aware of the edematous stoma and red liquid output. She is not concerned at this time. RN expressed concerns regarding patient's clinical presentation and requested testing to be done to determine if there is internal bleeding, hospitalist stated it is not necessary at this time due to stable heart rate and blood pressure.
[2023-04-08 22:19] LABS: Basophils Percent Auto 0.4 % (0.2-2.0); Eosinophils Percent Auto 0.4 % (0.9-7.0); Hematocrit 25.1 % (42.0-54.0); Immature Granulocytes Abs Auto 0.02 10^3/uL (0.00-0.03); Immature Granulocytes Pct Auto 0.3 % (0.0-0.5); Lymphocytes Absolute Auto 0.6 10^3/uL (1.2-3.8); Lymphocytes Percent Auto 7.9 % (20.5-60.0); Mean Corpuscular HGB Conc 31.9 g/dL (29.9-35.2); Mean Corpuscular Hemoglobin 28.5 pg (25.9-34.0); Mean Corpuscular Volume 89.3 fL (80.0-94.0); Mean Platelet Volume 14.5 fL (9.5-13.5); Monocytes Absolute Auto 0.7 10^3/uL (0.3-0.8); Monocytes Percent Auto 10.5 % (1.7-12.0); Neutrophils Absolute Auto 5.7 10^3/uL (1.4-6.5); Neutrophils Percent Auto 80.5 % (43.0-75.0); Platelet Count 103 10^3/uL (150-450); Red Blood Count 2.81 10^6/uL (4.70-6.10); Red Cell Distribution Width 18.8 % (11.0-15.0); White Blood Count 7.1 10^3/uL (4.0-11.0)
[2023-04-08 22:29] LABS: Alanine Aminotransferase 85 U/L (16-63); Albumin Globulin Ratio 0.8; Albumin Level 2.4 g/dL (3.4-5.0); Alkaline Phosphatase 61 U/L (46-116); Aspartate Amino Transferase 75 U/L (15-37); BUN Creatinine Ratio 28.2; Bilirubin Total 0.7 mg/dL (0.2-1.0); Calcium 7.8 mg/dL (8.5-10.1); Carbon Dioxide 26.7 mmol/L (21.0-32.0); Chloride 109 mmol/L (98-107); Estimated GFR (African America 40 (>=60); Estimated GFR (Non-African Ame 33 (>=60); Globulin 2.9 g/dL; Glucose 172 mg/dL (74-106); Potassium 3.7 mmol/L (3.5-5.1); Sodium 146 mmol/L (136-145); Total Protein 5.3 g/dL (6.4-8.2)
--- NOTE | 2023-04-08 23:14 | W.PM.TELEPN ---
Progress Note: Subjective Subjective Interval history: Was asked by nurse to evaluate patient as he desaturated to 75% then to 33%, became pale, eyes started to roll back, responded to sternal rub, eventually improved to 98% oxygen level on 3 L. His blood pressure was 127/64 and heart rate 71. At baseline he is nonverbal. He received 2 units of blood today. No arrhythmia seen on telemetry. Exam Narrative Exam Narrative: General : Awake, nonverbal Chest: Clear to auscultation bilaterally, no wheezes Heart: Regular rate and rhythm, S1 and S2 heard Abdomen: Soft nontender nondistended. Constitutional Vital Signs, click to edit/add: Last Vital Signs Temp 97.9 F 04/08/23 21:07 Pulse 75 04/08/23 21:07 Resp 18 04/08/23 21:07 BP 116/55 04/08/23 21:07 Pulse Ox 97 04/08/23 22:04 O2 Del Method Nasal Cannula 04/08/23 21:10 O2 Flow Rate 3 04/08/23 21:10 Progress Note: Objective Labs Labs: Short CBC 04/08/23 04/08/23 04/08/23 Range/Units 04:46 14:48 19:58 WBC 9.3 8.5 7.0 (4.0-11.0) 10^3/uL Hgb 7.2 L 8.8 L 8.1 L (14.0-18.0) g/dL Hct 23.0 L* 26.8 L 25.5 L (42.0-54.0) % Plt Count 134 L 110 L 101 L (150-450) 10^3/uL 04/08/23 Range/Units 22:04 WBC 7.1 (4.0-11.0) 10^3/uL Hgb 8.0 L (14.0-18.0) g/dL Hct 25.1 L (42.0-54.0) % Plt Count 103 L (150-450) 10^3/uL BMP 04/08/23 04/08/23 04:46 22:04 Sodium 142 146 H Potassium 4.3 3.7 Chloride 106 109 H Carbon Dioxide 25.1 26.7 BUN 42.0 H 57.0 H Creatinine 1.64 H 2.02 H Glucose 213 H 172 H Calcium 8.0 L 7.8 L Liver Function 04/08/23 04/08/23 Range/Units 04:46 22:04 Total Bilirubin 0.3 0.7 (0.2-1.0) mg/dL AST 145 H 75 H (15-37) U/L ALT 126 H 85 H (16-63) U/L Alkaline Phosphatase 59 61 (46-116) U/L Albumin 2.4 L 2.4 L (3.4-5.0) g/dL Progress Note: A&P Assessment and Plan (1) Sigmoid volvulus: (2) Closed right humeral fracture: (3) Acute postoperative anemia due to expected blood loss: (4) LOVE (acute kidney injury): (5) Diabetes: (6) Hypertension: (7) Neurogenic bladder: (8) Umbilical hernia: (9) Bipolar 1 disorder: (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 -Likely vasovagal -Nurse concerned about bleeding around ostomy site, repeat labs pending -If worsening anemia, may need recurrent transfusion and possible CT abdomen to make sure that there is no internal hemorrhage -For now, keep on continued monitoring on current floor as vital signs are stable. -Transfer to ICU if patient decompensates. Telemedicine Attestation Telemedicine Attestation I conducted this encounter from [] via secure live, [id number] video conference with the patient, located at [facility] with []. Prior to the interview, the risks and benefits of telemedicine were discussed with the patient and verbal consent was obtained.
--- NOTE | 2023-04-08 23:38 | XR_ITS ---
The [address] [address] Patient Name: MANASA NORIEGA MRN: [id number] date: 1955 Sex: M Assigned Patient Location: Current Patient Location: Accession/Order Number: [id number] Exam Date: 04/08/2023 23:59 Report Date: 04/09/2023 01:36 At the request of: YAQUELIN KIM Procedure: XR chest 1V EXAM: XR chest 1V HISTORY: hypoxia COMPARISON: Abdomen radiograph dated 04/07/2023. TECHNIQUE: One view of the chest was obtained. FINDINGS: The cardiac silhouette is stable in size. There is mild right basilar atelectasis. There is a small left pleural effusion with left basilar opacities. There is no significant pneumothorax. No acute osseous abnormality is seen. Intraperitoneal free air is noted. There are remote rib fractures. XR/XR chest 1V IMPRESSION: 1. Small left pleural effusion with left greater than right basilar opacities that are felt to represent atelectasis though aspiration changes and/or pneumonia could be present. 2. Intraperitoneal free air. The patient has a reported history of an abdominal surgery within the last 24 hours. The intraperitoneal free air is likely related to this. Finding #[address] Kim by Dr. Hernandez at 1:35 PM ET on 04/09/2023. Electronically authenticated by: Viola HERNANDEZ Date: 04/09/2023 01:36
--- NOTE | 2023-04-08 23:40 | PC.NURSE ---
patient had an apneic episode around 2330. when RN was at the door to the room pt was coughing, then when at the bedside, patient had stopped breathing. pulse ox was 77% on 3 L nasal cannula. Sternal rub completed and patient gasped for air before returning to normal breathing. pulse ox came up to 98% still on 3 L nasal cannula. Patient is more lethargic now than before the first episode. Lung sounds are clear and no secretions noted. RN, nursing supervisor agricultural education and respiratory therapy at bedside. Tele-hospitalist made aware of the episode and has ordered a stat ABG and chest X-ray. patient had no reaction to the ABG being drawn. awaiting results Blood pressure 122/68 heart rate 63
[2023-04-08 23:54] LABS: ABG PCO2 41.8 mmHg (35.0-45.0); pH ABG 7.392 (7.350-7.450)
[2023-04-08 23:55] LABS: Allen Test POSITIVE (POSITIVE); Base Excess ABG 0.5 mmol/L (-2.0-2.0); HCO3 ABG 25.5 mmol/L (22.0-26.0); Liters per Minute 3; O2 Mode NASAL CANNULA; Oxygen Saturation ABG 97.2 %; PO2 ABG 82.7 mmHg (80.0-100.0); Puncture Site LR
[2023-04-09] VITALS (22 sets, daily range): BP systolic 119–164; BP diastolic 58–77; PULSE 52–94; RESP 16–20; TEMP 36.1–36.9; O2SAT 90–99
[2023-04-09] MEDS: ACETAMINOPHEN 1,000 MG/100 ML PREMIX 400 MG IV ×2 (01:24→07:59)
--- NOTE | 2023-04-09 02:48 | PC.NURSE ---
patient had another apneic episode, pulse ox dropped into the mid-70s. RN and plant maintenance supervisor at patient bedside. Once patient began breathing his pulse ox increased to 95%. patient is still on 3 L nasal cannula
[2023-04-09] MEDS: ALBUTEROL SULFATE 2.5 MG/3 ML VIAL NEB IH ×4 (04:55→20:55)
[2023-04-09 05:27] LABS: Basophils Percent Auto 0.7 % (0.2-2.0); Eosinophils Absolute Auto 0.1 10^3/uL (0.0-0.7); Eosinophils Percent Auto 0.9 % (0.9-7.0); Hemoglobin 7.4 g/dL (14.0-18.0); Immature Granulocytes Abs Auto 0.02 10^3/uL (0.00-0.03); Immature Granulocytes Pct Auto 0.4 % (0.0-0.5); Lymphocytes Absolute Auto 0.4 10^3/uL (1.2-3.8); Lymphocytes Percent Auto 7.2 % (20.5-60.0); Mean Corpuscular HGB Conc 31.9 g/dL (29.9-35.2); Mean Corpuscular Hemoglobin 28.4 pg (25.9-34.0); Mean Corpuscular Volume 88.9 fL (80.0-94.0); Monocytes Absolute Auto 0.6 10^3/uL (0.3-0.8); Monocytes Percent Auto 11.5 % (1.7-12.0); Neutrophils Absolute Auto 4.4 10^3/uL (1.4-6.5); Neutrophils Percent Auto 79.3 % (43.0-75.0); Platelet Count 92 10^3/uL (150-450); Red Blood Count 2.61 10^6/uL (4.70-6.10); Red Cell Distribution Width 18.8 % (11.0-15.0); White Blood Count 5.6 10^3/uL (4.0-11.0)
[2023-04-09 05:38] LABS: Alanine Aminotransferase 73 U/L (16-63); Albumin Globulin Ratio 0.9; Albumin Level 2.3 g/dL (3.4-5.0); Alkaline Phosphatase 61 U/L (46-116); Anion Gap 13.4; Aspartate Amino Transferase 61 U/L (15-37); BUN Creatinine Ratio 27.1; Bilirubin Total 0.6 mg/dL (0.2-1.0); Calcium 7.6 mg/dL (8.5-10.1); Carbon Dioxide 27.4 mmol/L (21.0-32.0); Chloride 109 mmol/L (98-107); Estimated GFR (African America 39 (>=60); Estimated GFR (Non-African Ame 32 (>=60); Globulin 2.7 g/dL; Glucose 153 mg/dL (74-106); Potassium 3.8 mmol/L (3.5-5.1); Sodium 146 mmol/L (136-145)
[2023-04-09 05:57] LABS: Hematocrit 23.2 % (42.0-54.0)
[2023-04-09] MEDS: 0.9 % SODIUM CHLORIDE 1,000 ML 100 ML IV ×2 (07:03→20:39)
[2023-04-09] MEDS: MORPHINE SULFATE 2 MG/ML SYRINGE IV ×4 (08:16→20:54)
--- NOTE | 2023-04-09 08:20 | PC.NURSE ---
0755- patient was yelling and moaning, upon writing RN entering room patient was sideways in the bed. Writing RN asked for assistance in repositioning. After repositioning patient writing RN went and got the PRN medication IV acetominophen for pain. Meidcation was hung and started via the IV pump and writing RN completed assessment on patient. Upon completion of assessment patient appeared to be resting comfortably. Plastics Tooling Engineer put call light in reach. 0805- Plastics Tooling Engineer was in [address]u way and the patients call light came on, upon entering room patient was sideways in the bed again. Plastics Tooling Engineer got another RN to assist with repositioning. Patient was repositioned and still moaning in pain, PRN morphine was given at this time. Patient appeared to be resting comfortably again at this time after medication and repositioning. Call light is placed within reach. 0825- Upon entering patient room, patient is sideways in the bed again and moaning in pain. Physician notified at this time. Patient repositioned. Call light is within reach.
[2023-04-09] MEDS: LORAZEPAM 2 MG/ML 1 ML VIAL 1 MG IV (08:40)
--- NOTE | 2023-04-09 08:43 | XR_ITS ---
The [address] [address] Patient Name: MANASA NORIEGA MRN: [id number] date: 1955 Sex: M Assigned Patient Location: [place] Current Patient Location: Accession/Order Number: [id number] Exam Date: 04/09/2023 10:05 Report Date: 04/09/2023 10:48 At the request of: JOSIAS HSIEH Procedure: XR chest 1V PROCEDURE: XR chest 1V DATE: 04/09/2023 9:05 AM SKIN CARE INSTRUCTOR COMPARISONS: The present exam is done on 1126 at 1006 and is compared to previous exam done at 0053 same day. CLINICAL INDICATION: 67 years Male increased pain FINDINGS: The heart is mild to moderately prominent and is stable. The heart is accentuated by supine portable radiographic technique and less than optimal inspiratory radiograph The diaphragms are elevated, left greater than right as before. Findings consistent with a small amount of atelectasis of the right lung base with the right lung field otherwise essentially clear. Relatively prominent heterogeneous density of the left perihilar and infrahilar region likely representing atelectasis. An inflammatory component is not excluded based on these images. There is no evidence of pleural effusion or pneumothorax. XR/XR chest 1V IMPRESSION: Limited chest radiograph as discussed above. Chest is similar to previous exam done earlier in the day. Electronically authenticated by: KEVIN MATTSON Date: 04/09/2023 10:48
--- NOTE | 2023-04-09 08:43 | XR_ITS ---
[address] [address] Patient Name: MANASA NORIEGA MRN: [id number] date: 1955 Sex: M Assigned Patient Location: [place] Current Patient Location: [place] Accession/Order Number: [id number] Exam Date: 04/09/2023 10:05 Report Date: 04/09/2023 11:36 At the request of: JOSIAS HSIEH Procedure: XR abdomen 1V EXAM: XR abdomen 1V CLINICAL HISTORY: Postop pain. COMPARISON: 04/07/2023. TECHNIQUE: X-ray FINDINGS: There are mildly prominent air-filled loops of small bowel. Oral contrast is observed from the cecum to the proximal descending colon. A small amount of air and contrast are observed within the rectum. XR/XR abdomen 1V IMPRESSION: Nonobstructive bowel gas pattern. Electronically authenticated by: PEGGY ANDERSON Date: 04/09/2023 11:36
[2023-04-09] MEDS: PANTOPRAZOLE SODIUM 40 MG VIAL IV (10:26)
--- NOTE | 2023-04-09 10:56 | PM.PN ---
Progress Note: Subjective Subjective Interval history: Patient not doing well overnight. Developed hypoxia and desaturation overnight but responded well to supplemental oxygen. Remains on 3 LPM. Very agitated this am and restless. Given IV ativan which helped. Hgb decreased overnight and started 2 additional units PRBC. Vitals stable and afebrile. Mild cough but noted shallow respirations. Not able to use OPEP due to mental status. Exam Constitutional Vital Signs, click to edit/add: Last Vital Signs Temp 97.8 F 04/09/23 10:33 Pulse 63 04/09/23 10:33 Resp 16 04/09/23 10:33 BP 132/58 04/09/23 10:33 Pulse Ox 95 04/09/23 10:33 O2 Del Method Nasal Cannula 04/09/23 10:33 O2 Flow Rate 3 04/09/23 10:33 Documenting provider has reviewed patient's vital signs: yes Common normals: no apparent distress Exam limitations: physical limitations HENVA Common normals: normocephalic Respiratory Common normals: normal respiratory effort and clear to auscultation bilaterally Cardio Common normals: regular rate, regular rhythm, no gallops, no murmurs and no rub GI Common normals: soft to palpation Auscultation: hypoactive bowel sounds Extremity Common normals: no pedal edema Progress Note: Objective Labs Labs: Short CBC 04/08/23 04/08/23 04/08/23 Range/Units 14:48 19:58 22:04 WBC 8.5 7.0 7.1 (4.0-11.0) 10^3/uL Hgb 8.8 L 8.1 L 8.0 L (14.0-18.0) g/dL Hct 26.8 L 25.5 L 25.1 L (42.0-54.0) % Plt Count 110 L 101 L 103 L (150-450) 10^3/uL 04/09/23 Range/Units 04:53 WBC 5.6 (4.0-11.0) 10^3/uL Hgb 7.4 L (14.0-18.0) g/dL Hct 23.2 L* (42.0-54.0) % Plt Count 92 L (150-450) 10^3/uL BMP 04/08/23 04/09/23 22:04 04:53 Sodium 146 H 146 H Potassium 3.7 3.8 Chloride 109 H 109 H Carbon Dioxide 26.7 27.4 BUN 57.0 H 57.0 H Creatinine 2.02 H 2.10 H Glucose 172 H 153 H Calcium 7.8 L 7.6 L Liver Function 04/08/23 04/09/23 Range/Units 22:04 04:53 Total Bilirubin 0.7 0.6 (0.2-1.0) mg/dL AST 75 H 61 H (15-37) U/L ALT 85 H 73 H (16-63) U/L Alkaline Phosphatase 61 61 (46-116) U/L Albumin 2.4 L 2.3 L (3.4-5.0) g/dL ABG Attestation: I have reviewed the pertinent ABG results. Pulse Oximetry Attestation: I have reviewed the pertinent pulse oximetry results. Progress Note: A&P Assessment and Plan (1) Sigmoid volvulus: (2) Closed right humeral fracture: (3) Acute postoperative anemia due to expected blood loss: (4) Hypoxia: (5) LOVE (acute kidney injury): (6) Diabetes: (7) Hypertension: (8) Neurogenic bladder: (9) Umbilical hernia: (10) Bipolar 1 disorder: (11) Intracerebellar and posterior fossa hemorrhage: Plan Remains agitated after surgery. Appreciate surgical management. Hgb decreased overnight and giving 2 additional units PRBC. Developed hypoxia likely related to atelectasis and shallow respirations. Repeat x-ray chest and abdomen. Use morphine and ativan for pain. May need CT abdomen if continue to have worsening anemia.
[2023-04-09 11:50] LABS: Glucometer 164 mg/dL (74-106)
[2023-04-09] MEDS: FUROSEMIDE 40 MG/4 ML VIAL IVP (12:16)
--- NOTE | 2023-04-09 15:01 | PM.GSPN ---
Progress Note: A&P Assessment and Plan (1) Sigmoid volvulus: (2) Closed right humeral fracture: (3) Acute postoperative anemia due to expected blood loss: (4) Hypoxia: (5) LOVE (acute kidney injury): (6) Diabetes: (7) Hypertension: (8) Neurogenic bladder: (9) Umbilical hernia: (10) Bipolar 1 disorder: (11) Intracerebellar and posterior fossa hemorrhage: Plan Clinically stable at this time. The patient's BUN and CR are noted to be trending upwards towards worsening renal function without a clear explanation. Discussed the above findings and concerns with patient's family and discussed options including CTA of the chest to exclude PE to explain the hypoxia, and repeat CT scans of the Abdomen and pelvis to exclude post-op hemorrhage, and they have indicated that they would prefer to not pursue any additional evaluations at this time, and no escalation of therapy, no further blood transfusions. In addition they have chosen to change his status to DNR-CC, and have initiated Hospice evaluation. Discussed with Dr. Piper as well. Subjective Subjective Interval history: The patient remains unable to provide subjective information. Family members are currently at bedside, including his sister and his POA (cousin). A lengthy and detailed discussion was had regarding his current status, areas of clinical concern and options. It was noted that he has had episodes of hypoxia over the last 24 hrs which may not be entirely explained by the CXR findings from earlier today. In addition, the patient received 2 units of PRBC's yesterday and his H/H are noted to have further declined, raising the concern for possible post-op intra-abdominal or retroperitoneal bleeding. Exam Constitutional Vital Signs, click to edit/add: Last Vital Signs Temp 97.7 F 04/09/23 13:21 Pulse 63 04/09/23 13:21 Resp 16 04/09/23 13:21 BP 152/61 H 04/09/23 13:21 Pulse Ox 98 04/09/23 14:00 O2 Del Method Nasal Cannula 04/09/23 13:21 O2 Flow Rate 2 04/09/23 13:21 Respiratory Other: No respiratory distress. GI Other: Abdomen is soft, appropriately tender; midline incision is closed and dry, lisseth intact. The LLQ stoma remains edematous but is healthy and pink with only serosanguinous drainage in the bag. Urinary Catheter Management Urinary Catheter Management Urethral: Cath placed during this visit: yes Urethral indwelling: No Reason for continuing: measure accurate output Insertion date: 04/06/23 Insertion time: 12:00
--- NOTE | 2023-04-09 15:22 | PC.NURSE ---
Hospice was consulted per family wishes and doctor order. Hospice contacted family and set up and appt for 04/10/2023 between [id number]. Dr. Styles also rounded on the patient and discusssed options with the family. Family at this point wants to take the comfort care approach at treatment. Family including POA requested that all lab work be discontinued at this time and wish to not have anymore scans or tests done. Dr. Piper made aware of family wishes and gave orders to discontinue lab work, insulin, and accuchecks at this time. Code status has also been changed to DNRCC.
[2023-04-10] VITALS (10 sets, daily range): BP systolic 150–185; BP diastolic 67–84; PULSE 60–82; RESP 16; TEMP 36.4–37.4; O2SAT 92–97
[2023-04-10] MEDS: MORPHINE SULFATE 2 MG/ML SYRINGE IV ×3 (01:56→13:19)
[2023-04-10] MEDS: LORAZEPAM 2 MG/ML 1 ML VIAL 1 MG IV ×2 (02:41→15:12)
[2023-04-10] MEDS: 0.9 % SODIUM CHLORIDE 1,000 ML 100 ML IV (05:24)
--- NOTE | 2023-04-10 09:26 | CM.NOTE ---
Chart information copied and placed on [facility] for Hospice.
[2023-04-10] MEDS: PANTOPRAZOLE SODIUM 40 MG VIAL IV (09:27)
[2023-04-10] MEDS: HYDRALAZINE HCL 20 MG/ML VIAL 10 MG IVP ×2 (09:32→13:56)
--- NOTE | 2023-04-10 10:25 | CM.NOTE ---
Rounds made with Dr. Piper, Hospice evaluating pt at this time. Awaiting recommendations from Hospice for further plan of care.
--- NOTE | 2023-04-10 11:31 | CM.NOTE ---
Spoke with RN from [facility], pt will go inpt [facility] and [facility] will transport today at 5:30. JACINTO Vidal notified. Support provided to family and questions answered.
--- NOTE | 2023-04-10 11:45 | W.PM.WC_ITS ---
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 Patient had surgery with Dr. Marinelli on 04.07.2023. Patient has left upper quadrant stoma, pink, edematous. + flatus in pouch noted. Small amount of serosang drainage noted. Patient and family just finished meeting with hospice. He will be transported to inpatient hospice this afternoon. Supplies left at bedside to take with him once discharged. Sisters did not have questions at this time regarding care. JEREMIAS Aguirrenarcotics and vice detective at bedside to assist with turning patient to exam sacral skin. Patient does have deep tissue injury noted to sacrum. Periulcer skin intact, blanches. Unable to take photo due to technical issues. 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
[2023-04-10] MEDS: ALBUTEROL SULFATE 2.5 MG/3 ML VIAL NEB IH (12:09)
--- NOTE | 2023-04-10 12:11 | P.DS_ITS ---
Agree with assessment and plan. Presented with fracture and volvulus. To OR and developed anemia. Family decided on comfort care and hospice consulted. DS: Providers Provider Date of admission: 04/06/23 17:15 Primary care physician: RYLAN NUNEZ Consults: 04/06/23 17:33 Consult to General Surgeon Routine Consulting Provider: Andrew Marinelli Reason for consultation: Volvulus Has provider been notified: Yes 04/07/23 11:11 Occupational Therapy Eval and Treat Routine Reason for consultation: rehab Has provider been notified: No Physical Therapy Eval and Treat Routine Reason for consultation: rehab Has provider been notified: No 04/09/23 Consult to Hospice Routine Reason for consultation: change in patient status Has provider been notified: Yes Discharging clinician: Dana Echols DS: Diagnosis Discharge Diagnosis (1) Sigmoid volvulus: (2) Closed right humeral fracture: (3) Bipolar 1 disorder: (4) Diabetes: (5) Hypertension: (6) Neurogenic bladder: (7) Acute postoperative anemia due to expected blood loss: (8) LOVE (acute kidney injury): (9) Umbilical hernia: (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 The humerus fracture was considered nonsurgical and was placed in a sling. He was seen in consult by Dr. Duane Styles on 04/07/2023 and taken emergently to the OR for a sigmoid colon resection, end colostomy placement, and Mclean's procedure. A repair of his umbilical hernia was also performed. Unfortunately the patient's postoperative course has been complicated and he is not doing well. He experienced acute hypoxia and waxing and waning mentation. He has been unable to eat for the last 36 hours and he is mostly sleeping. The patient family decided that they did not want to pursue further interventions or diagnostics. They spoke with the surgeon and with the hospitalist yesterday about pursuing hospice care which was deemed appropriate. He was seen by the hospice service this morning and they will admit him to their inpatient hospice unit later today. The patient is being discharged in guarded condition to hospice care. Status at Discharge Overall status at discharge: other (imminent likely) Time Spent with Patient Time attestation: Total time spent providing and/or coordinating discharge services: Time spent: greater than 30 minutes Exam Narrative Exam Narrative: Pt sleeping soundly, does not arouse easily/lethargic. Does not participate in exam Constitutional Vital Signs, click to edit/add: Last Vital Signs Temp 97.6 F 04/10/23 07:36 Pulse 71 04/10/23 10:04 Resp 16 04/10/23 10:04 BP 166/67 H 04/10/23 10:04 Pulse Ox 94 L 04/10/23 07:36 O2 Del Method Nasal Cannula 04/10/23 07:36 O2 Flow Rate 2 04/10/23 07:36 Common normals: no apparent distress HENMT Common normals: normocephalic and head/scalp atraumatic Eye Common normals: PERRL, EOMs intact bilaterally, conjunctivae normal and no scleral icterus Neck & C-Spine Common normals: no JVD Respiratory Common normals: normal respiratory effort, no use of accessory muscles and clear to auscultation bilaterally Effort & inspection: symmetric chest movement Cardio Common normals: no JVD, regular rate, S1 normal heart sound, S2 normal heart sound and peripheral pulses 2+ throughout Heart sounds: murmur (HSM 4/6) GI Common normals: soft to palpation Auscultation: hypoactive bowel sounds Bladder/kidney exam: bladder normal to palpation Extremity Common normals: normal to inspection, full ROM, normal capillary refill and no pedal edema General: no clubbing and no cyanosis DS: Data Data Completed and Pending Labs on day of discharge: Labs from last 24 hours 04/07/23 07:02 Crossmatch See Detail Discharge Plan Discharge Disposition: Hospice - Medical Facility Condition: Good Discharge Medications: Discontinued aripiprazole 5 mg tablet 2.5 mg PO DAILY docusate sodium 100 mg capsule 100 mg PO BID fluticasone propionate 50 mcg/actuation spray,suspension 2 spray INTRANASAL DAILY lisinopril 5 mg tablet 5 mg PO DAILY Tradjenta 5 mg tablet 5 mg PO DAILY lubiprostone 24 mcg capsule 24 mcg PO BID metformin 500 mg tablet extended release 24 hr 1,000 mg PO BID multivitamin with folic acid [Daily-Milton (with folic acid)] 400 mcg tablet 1 tab PO DAILY pioglitazone 15 mg tablet 15 mg PO DAILY sennosides-docusate sodium [Stimulant Laxative Plus] 8.6-50 mg tablet 1 tab-cap PO BID simvastatin 5 mg tablet 5 mg PO BEDTIME tamsulosin 0.4 mg capsule 0.4 mg PO BID ketoconazole 2 % shampoo 1 applic topical .twice weekly acetaminophen 325 mg tablet 650 mg PO Q4H PRN (Reason: fever or pain) Saline Mist 0.65 % aerosol,spray 2 spray INTRANASAL Q6H PRN (Reason: dry nasal passages) Dickens DM 7.5-7.5 mg/5 mL liquid 10 ml PO Q8H PRN (Reason: cough) Patient Instructions: Arm Fracture in Adults (DC), How to Use a Sling (DC), Acute Posthemorrhagic Anemia (DC) Forms: Portal Instructions Referrals: RYLAN NUNEZ [Primary Care Provider] - 1 week Follow Up Appointments: inpatient hospice - no follow up appointment needed
--- NOTE | 2023-04-10 14:42 | CM.NOTE ---
Talked with family to make sure their questions were all answered with [facility]. Pt's daughter and POA very appreciate of support and deny having any other questions.
== END 2023-04-10 18:40 | disposition hospice, inpatient (51) | DRG 330 ==
LOC: ER 17:19 → MS 17:19
PROVIDERS: Family Medicine; Internal Medicine; Surgery; Admitting Provider Family Medicine; Emergency Provider Emergency Medicine; PCP Nurse Practitioner; Visit Provider Nurse Practitioner
PROC: 0DTN0ZZ Resection of Sigmoid Colon, Open Approach (ICD-10-PCS; principal; 2023-04-07 07:30)
DX: K56.2 Volvulus (principal); D62 Acute posthemorrhagic anemia; S42.291A Other displaced fracture of upper end of right humerus, initial encounter for closed fracture; N17.9 Acute kidney failure, unspecified; Q43.8 Other specified congenital malformations of intestine; F79 Unspecified intellectual disabilities; K42.9 Umbilical hernia without obstruction or gangrene; Z86.73 Personal history of transient ischemic attack (TIA), and cerebral infarction without residual deficits; W19.XXXA Unspecified fall, initial encounter; F31.9 Bipolar disorder, unspecified; E11.9 Type 2 diabetes mellitus without complications; I10 Essential (primary) hypertension; N31.9 Neuromuscular dysfunction of bladder, unspecified; Z96.621 Presence of right artificial elbow joint; Z79.899 Other long term (current) drug therapy; D50.9 Iron deficiency anemia, unspecified; R00.0 Tachycardia, unspecified; R06.03 Acute respiratory distress; D69.6 Thrombocytopenia, unspecified; D72.825 Bandemia; R09.02 Hypoxemia; Z66 Do not resuscitate; R45.1 Restlessness and agitation; Z79.82 Long term (current) use of aspirin; Z79.84 Long term (current) use of oral hypoglycemic drugs; T83.098A Other mechanical complication of other urinary catheter, initial encounter
CPT/HCPCS: 36415; 36430; 36600; 51702; 64488; 70450; 71045; 72125; 73030; 73080; 73090; 73110; 74018; 74174; 74177; 80048; 80053; 81001; 82550; 82805; 82948; 83605; 84484; 85025; 85027; 86850; 86900; 86901; 88304; 88307; 93005; 93306; 94640; 94761; 96365; 96366; 96375; 96376; 99285; J2704; P9016; Q3014; Q9963; Q9967